=== PATIENT | female | born 1975 | race Caucasian/White ===

== ENCOUNTER 2022-09-19 18:30 | Observation (INO) | payer OTHER ==
--- OUTSIDE RECORDS SUMMARY | 2022-09-19 18:35 | XMS REPORT | Continuity of Care Document ---
:1975 Author Organization [facility] t Address [address] [place] [address] Care Team Providers Name Role Phone Jacquelyn Su MD Primary Care Physician KEILA SILVA Attending Clinician Unavailable Keila Silva DO Attending Clinician JOHN KIRBY Attending Clinician Unavailable Wai COMPUTER DESIGNERJohn Madera Attending Clinician JACQUELYN SU Attending Clinician Unavailable Doctor Unassigned, [place] Attending Clinician Unavailable Jacquelyn Su MD Attending Clinician Porfirio Barr DO Attending Clinician Magalie Carreno Attending Clinician MAGALIE VELÁSQUEZ Attending Clinician Unavailable Payers Payer Name Policy Type Policy Number Effective Date Expiration Date Demetris kumar [employer] [id number] 2018 OUT OF NETWORK 00:00:00 Problems Condition Condition Condition Status Onset Resolution Last Treating Co mments Source Name Details Category Date Date Treatment Clinician Date Attention Attention Disease Active Uni vers deficit deficit - ity of disorder disorder 00:00: [place] (ADD) (ADD) 00 Medical without without Branch hyperactiv hyperactiv ity ity Insomnia, Insomnia, Disease Active Uni vers unspecifie unspecifie -26 it y of d type d type 00:00: [place] 00 Medical Branch No known No known Disease Unive rs active active ity of problems problems [facility] Allergies, Adverse Reactions, Alerts Allergy Allergy Status Severity Reaction(s) Onset Inactive Treating Comm ents Source Name Type Date Date Clinician NO KNOWN Drug Active [facility] ALLERGIE Class ity of S [facility] Social History Social Habit Start Date Stop Date Quantity Comments Source History of tobacco Cigarette Smoker University of use [facility] Exposure to 2022-02-02 2022-02-12 Not sure [facility] SARS-CoV-2 (event) 00:00:00 07:12:00 [facility] Alcohol intake 2022-02-04 2022-02-04 Current University 00:00:00 00:00:00 non-drinker of [facility] alcohol Branch (finding) Tobacco use and 2019-08-01 2019-08-01 Smokeless Universit y of exposure 00:00:00 00:00:00 tobacco non-user [facility] C[facility] smoked 2019-08-01 2019-08-01 [facility] ity of current (pack per 00:00:00 00:00:00 [facility] ) - Reported Branch Sex Ass[birth year] At [birth year] [facility] 00:00:00 [facility] Smoking Status Start Date Stop Date Source Smokes tobacco daily 2019-08-01 00:00:00 [facility] ity [facility] Smoker, current status 2018-05-31 00:00:00 [facility] Medications Ordered Filled Start Stop Current Ordering Indication Dosage Frequency Signature Comments Components Source Medication Medication Date Date Medication? Clinician (SIG) Name Name methylPREDN Yes [id number] Take by [facility] ISolone 02-12 mouth ity of (MEDROL, 00:00: SEE-INSTRU Valeriano as TODD,) 4 mg 00 CTIONS. Medica l tablets follow [place] package directions NaCl 0.9% 2021- No 1000mL at 999 Uni vers (NS) bolus 02-05 09-14 mL/hr, ity of infusion 02:15: 14:14 1,000 mL, Valeriano as 1,000 mL 00 :00 IV Medical Infusion, [place] ONCE, 1 dose, On Thu02/04/22 at 2115, MEI zolpidem 10 2020-05 Yes [id number] 10mg Take 1 Univers mg tablet 0-20 tablet by ity o f 00:00: mouth at [place] 00 bedtime as Medical needed for Branch Insomnia. zolpidem 10 2020-05 Yes [id number] 10mg Take 1 Univers mg tablet 0-20 tablet by ity o f 00:00: mouth at [place] 00 bedtime as Medical needed for Branch Insomnia. zolpidem 10 2020-05 Yes [id number] 10mg Take 1 Univers mg tablet 0-20 tablet by ity o f 00:00: mouth at [place] 00 bedtime as Medical needed for Branch Insomnia. ESCITALOPRA Yes [id number] Take 1 Univers M OXALATE 8-23 tablet by ity o f 20 mg 00:00: mouth once [place] tablet 00 daily Medical Branch ESCITALOPRA Yes [id number] Take 1 Univers M OXALATE 8-23 tablet by ity o f 20 mg 00:00: mouth once [place] tablet 00 daily Medical Branch ESCITALOPRA Yes [id number] Take 1 Univers M OXALATE 8-23 tablet by ity o f 20 mg 00:00: mouth once [place] tablet daily Medical Branch ESCITALOPRA Yes [id number] Take 1 Univers M OXALATE 8-23 tablet by ity o f 20 mg 00:00: mouth once [place] tablet 00 daily Medical Branch ESCITALOPRA Yes [id number] Take 1 Univers M OXALATE 8-23 tablet by ity o f 20 mg 00:00: mouth once [place] tablet 00 daily Medical Branch ESCITALOPRA Yes [id number] Take 1 Univers M OXALATE 8-23 tablet by ity o f 20 mg 00:00: mouth once [place] tablet 00 daily Medical Branch ESCITALOPRA Yes [id number] Take 1 Univers M OXALATE 8-23 tablet by ity o f 20 mg 00:00: mouth once [place] tablet 00 daily Medical Branch ESCITALOPRA Yes [id number] Take 1 Univers M OXALATE 8-23 tablet by ity o f 20 mg 00:00: mouth once [place] tablet 00 daily Medical Branch escitalopra Yes [id number] 20mg Take 1 Univers m oxalate 4-19 tablet by ity o f (LEXAPRO) 00:00: mouth [place] 20 mg 00 daily. Medical tablet Branch zolpidem 10 Yes [id number] 10mg Take 1 Univers mg tablet 4-19 tablet by ity o f 00:00: mouth at [place] 00 bedtime as Medical needed for Branch Insomnia. escitalopra Yes [id number] 20mg Take 1 Univers m oxalate 4-19 tablet by ity o f (LEXAPRO) 00:00: mouth [place] 20 mg 00 daily. Medical tablet Branch zolpidem 10 Yes [id number] 10mg Take 1 Univers mg tablet 4-19 tablet by ity o f 00:00: mouth at [place] 00 bedtime as Medical needed for Branch Insomnia. escitalopra Yes [id number] 20mg Take 1 Univers m oxalate 4-19 tablet by ity o f (LEXAPRO) 00:00: mouth [place] 20 mg 00 daily. Medical tablet Branch zolpidem 10 Yes [id number] 10mg Take 1 Univers mg tablet 4-19 tablet by ity o f 00:00: mouth at [place] 00 bedtime as Medical needed for Branch Insomnia. escitalopra Yes [id number] 20mg Take 1 Univers m oxalate 4-19 tablet by ity o f (LEXAPRO) 00:00: mouth [place] 20 mg 00 daily. Medical tablet Branch zolpidem 10 Yes [id number] 10mg Take 1 Univers mg tablet 4-19 tablet by ity o f 00:00: mouth at [place] 00 bedtime as Medical needed for Branch Insomnia. escitalopra Yes [id number] 20mg Take 1 Univers m oxalate 4-19 tablet by ity o f (LEXAPRO) 00:00: mouth [place] 20 mg 00 daily. Medical tablet Branch zolpidem 10 Yes [id number] 10mg Take 1 Univers mg tablet 4-19 tablet by ity o f 00:00: mouth at [place] 00 bedtime as Medical needed for Branch Insomnia. escitalopra Yes [id number] 20mg Take 1 Univers m oxalate 4-19 tablet by ity o f (LEXAPRO) 00:00: mouth [place] 20 mg 00 daily. Medical tablet Branch zolpidem 10 Yes [id number] 10mg Take 1 Univers mg tablet 4-19 tablet by ity o f 00:00: mouth at [place] 00 bedtime as Medical needed for Branch Insomnia. zolpidem 10 Yes [id number] 10mg Take 1 Univers mg tablet 4-19 tablet by ity o f 00:00: mouth at [place] 00 bedtime as Medical needed for Branch Insomnia. zolpidem 10 Yes [id number] 10mg Take 1 Univers mg tablet 4-19 tablet by ity o f 00:00: mouth at [place] 00 bedtime as Medical needed for Branch Insomnia. zolpidem 10 Yes [id number] 10mg Take 1 Univers mg tablet 4-19 tablet by ity o f 00:00: mouth at [place] 00 bedtime as Medical needed for Branch Insomnia. zolpidem 10 Yes [id number] 10mg Take 1 Univers mg tablet 4-19 tablet by ity o f 00:00: mouth at [place] 00 bedtime as Medical needed for Branch Insomnia. zolpidem Yes [id number] 10mg Take 1 Univers mg tablet 4-19 tablet by ity o f 00:00: mouth at [place] 00 bedtime as Medical needed for Branch Insomnia. zolpidem 10 2020- No [id number] 10mg Take 1 Univers mg tablet 4-19 10-20 tablet by ity of 00:00: 00:00 mouth at [place] 00 :00 bedtime as Medical needed for Branch Insomnia. escitalopra 2020- No [id number] 20mg Take 1 Univers m oxalate 4-19 -23 tablet by ity of (LEXAPRO) 00:00: 00:00 mouth [place] 20 mg 00 :00 daily. Medical tablet Branch zolpidem 10 2019-05 Yes [id number] 10mg Take 1 Univers mg tablet 0-26 tablet by ity o f 00:00: mouth at [place] 00 bedtime as Medical needed for Branch Insomnia. escitalopra 2019-05 Yes [id number] 20mg Take 1 Univers m oxalate 0-26 tablet by ity o f (LEXAPRO) 00:00: mouth [place] 20 mg 00 daily. Medical tablet Branch dextroamphe 2019-05 Yes [id number] 10mg Take 1 Univers tamine-amph 0-26 tablet by ity of etamine 10 00:00: mouth [place] mg tablet 00 every Medical morning. Branch zolpidem 10 2019-05 Yes [id number] 10mg Take 1 Univers mg tablet 0-26 tablet by ity o f 00:00: mouth at [place] 00 bedtime as Medical needed for Branch Insomnia. escitalopra 2019-05 Yes [id number] 20mg Take 1 Univers m oxalate 0-26 tablet by ity o f (LEXAPRO) 00:00: mouth [place] 20 mg 00 daily. Medical tablet Branch dextroamphe 2019-05 Yes [id number] 10mg Take 1 Univers tamine-amph 0-26 tablet by ity of etamine 10 00:00: mouth [place] mg tablet 00 every Medical morning. Branch zolpidem 10 2019-05 Yes [id number] 10mg Take 1 Univers mg tablet 0-26 tablet by ity o f 00:00: mouth at [place] 00 bedtime as Medical needed for Branch Insomnia. escitalopra 2019-05 Yes [id number] 20mg Take 1 Univers m oxalate 0-26 tablet by ity o f (LEXAPRO) 00:00: mouth [place] 20 mg 00 daily. Medical tablet Branch dextroamphe 2019-05 Yes [id number] 10mg Take 1 Univers tamine-amph 0-26 tablet by ity of etamine 10 00:00: mouth [place] mg tablet 00 every Medical morning. Branch zolpidem 10 2019-05 Yes [id number] 10mg Take 1 Univers mg tablet 0-26 tablet by ity o f 00:00: mouth at [place] 00 bedtime as Medical needed for Branch Insomnia. escitalopra 2019-05 Yes [id number] 20mg Take 1 Univers m oxalate 0-26 tablet by ity o f (LEXAPRO) 00:00: mouth [place] 20 mg 00 daily. Medical tablet Branch dextroamphe 2019-05 Yes [id number] 10mg Take 1 Univers tamine-amph 0-26 tablet by ity of etamine 10 00:00: mouth [place] mg tablet 00 every Medical morning. Branch zolpidem 10 2019-05 Yes [id number] 10mg Take 1 Univers mg tablet 0-26 tablet by ity o f 00:00: mouth at [place] 00 bedtime as Medical needed for Branch Insomnia. escitalopra 2019-05 Yes [id number] 20mg Take 1 Univers m oxalate 0-26 tablet by ity o f (LEXAPRO) 00:00: mouth [place] 20 mg 00 daily. Medical tablet Branch dextroamphe 2019-05 Yes [id number] 10mg Take 1 Univers tamine-amph 0-26 tablet by ity of etamine 10 00:00: mouth [place] mg tablet 00 every Medical morning. Branch dextroamphe 2020-1 Yes [id number] 10mg Take 1 Univers tamine-amph 0-26 tablet by ity of etamine 10 00:00: mouth [place] mg tablet 00 every Medical morning. Branch dextroamphe 2020-1 Yes [id number] 10mg Take 1 Univers tamine-amph 0-26 tablet by ity of etamine 10 00:00: mouth [place] mg tablet 00 every Medical morning. Branch dextroamphe 2020-1 Yes [id number] 10mg Take 1 Univers tamine-amph 0-26 tablet by ity of etamine 10 00:00: mouth [place] mg tablet 00 every Medical morning. Branch dextroamphe 2020-1 Yes [id number] 10mg Take 1 Univers tamine-amph 0-26 tablet by ity of etamine 10 00:00: mouth [place] mg tablet 00 every Medical morning. Branch dextroamphe 2020-1 Yes [id number] 10mg Take 1 Univers tamine-amph 0-26 tablet by ity of etamine 10 00:00: mouth [place] mg tablet 00 every Medical morning. Branch dextroamphe 2020-1 Yes [id number] 10mg Take 1 Univers tamine-amph 0-26 tablet by ity of etamine 10 00:00: mouth [place] mg tablet 00 every Medical morning. Branch dextroamphe 2020-1 Yes [id number] 10mg Take 1 Univers tamine-amph 0-26 tablet by ity of etamine 10 00:00: mouth [place] mg tablet 00 every Medical morning. Branch dextroamphe 2020-1 Yes [id number] 10mg Take 1 Univers tamine-amph 0-26 tablet by ity of etamine 10 00:00: mouth [place] mg tablet 00 every Medical morning. Branch dextroamphe 2020-1 Yes [id number] 10mg Take 1 Univers tamine-amph 0-26 tablet by ity of etamine 10 00:00: mouth [place] mg tablet 00 every Medical morning. Branch dextroamphe 2020-1 Yes [id number] 10mg Take 1 Univers tamine-amph 0-26 tablet by ity of etamine 10 00:00: mouth [place] mg tablet 00 every Medical morning. Branch dextroamphe 2020-1 Yes [id number] 10mg Take 1 Univers tamine-amph 0-26 tablet by ity of etamine 10 00:00: mouth [place] mg tablet 00 every Medical morning. Branch dextroamphe 2019- Yes [id number] 10mg Take 1 Univers tamine-amph 0-26 tablet by ity of etamine 10 00:00: mouth [place] mg tablet 00 every Medical morning. Branch dextroamphe 2019- Yes [id number] 10mg Take 1 Univers tamine-amph 0-26 tablet by ity of etamine 10 00:00: mouth [place] mg tablet 00 every Medical morning. Branch dextroamphe 2019- Yes [id number] 10mg Take 1 Univers tamine-amph 0-26 tablet by ity of etamine 10 00:00: mouth [place] mg tablet 00 every Medical morning. Branch zolpidem 10 2019-05- No [id number] 10mg Take 1 Univers mg tablet 0-26 04-19 tablet by ity of 00:00: 00:00 mouth at [place] 00 :00 bedtime as Medical needed for Branch Insomnia. escitalopra 2019-05- No [id number] 20mg Take 1 Univers m oxalate 0-26 04-19 tablet by ity of (LEXAPRO) 00:00: 00:00 mouth [place] 20 mg 00 :00 daily. Medical tablet Branch zolpidem 10 2019- Yes [id number] 10mg Take 1 Univers mg tablet 5-26 tablet by ity o f 00:00: mouth at [place] 00 bedtime as Medical needed for Branch Insomnia. dextroamphe 2020- Yes [id number] 10mg Take 1 Univers tamine-amph 5-26 tablet by ity of etamine 10 00:00: mouth [place] mg tablet 00 every Medical morning. Branch zolpidem 10 2019- Yes [id number] 10mg Take 1 Univers mg tablet 5-26 tablet by ity o f 00:00: mouth at [place] 00 bedtime as Medical needed for Branch Insomnia. dextroamphe 2020- Yes [id number] 10mg Take 1 Univers tamine-amph 5-26 tablet by ity of etamine 10 00:00: mouth [place] mg tablet 00 every Medical morning. Branch zolpidem 10 2019- 2020- No [id number] 10mg Take 1 Univers mg tablet 5-26 10-26 tablet by ity of 00:00: 00:00 mouth at [place] 00 :00 bedtime as Medical needed for Branch Insomnia. dextroamphe 2019-0 2020- No [id number] 10mg Take 1 Univers tamine-amph 5-26 10-26 tablet by it y of etamine 10 00:00: 00:00 mouth [place] mg tablet 00 :00 every Medical morning. Branch zolpidem 10 2020- No [id number] 10mg Take 1 Univers mg tablet 5-26 10-26 tablet by ity of 00:00: 00:00 mouth at [place] 00 :00 bedtime as Medical needed for Branch Insomnia. dextroamphe 2019- 2020- No [id number] 10mg Take 1 Univers tamine-amph 5-26 10-26 tablet by it y of etamine 10 00:00: 00:00 mouth [place] mg tablet 00 :00 every Medical morning. Branch eszopiclone 2019-0 Yes [id number] 3mg Take 1 Univers 3 mg tablet 4-21 tablet by ity of 00:00: mouth at [place] [address] bedtime. Medical Branch eszopiclone 2019-0 Yes [id number] 3mg Take 1 Univers 3 mg tablet 4-21 tablet by ity of 00:00: mouth at [place] [address] bedtime. Medical Branch eszopiclone 2019-0 2020- No [id number] 3mg Take 1 Univers 3 mg tablet 4-21 05-26 tablet by it y of 00:00: 00:00 mouth at [place] 00 :00 bedtime. Medical Branch ESZOPICLONE 2019-0 Yes [id number] 3mg TAKE 1 Univers 3 mg tablet 3-18 TABLET BY ity of 00:00: MOUTH AT [place] 00 BEDTIME Medical Branch ESZOPICLONE 2020-0 Yes [id number] 3mg TAKE 1 Univers 3 mg tablet 3-18 TABLET BY ity of 00:00: MOUTH AT [place] 00 BEDTIME Medical Branch ESZOPICLONE 2019-0 2020- No [id number] 3mg TAKE 1 Univers 3 mg tablet 3-18 04-21 TABLET BY it y of 00:00: 00:00 MOUTH AT [place] 00 :00 BEDTIME Medical Branch ibuprofen 2020-0 Yes 800mg Take 1 Unive rs 800 mg 2-26 tablet by ity of tablet 00:00: mouth [place] 00 every 8 Medical (eight) Branch hours as needed for Pain (scale 4-6). ibuprofen 2019-0 Yes 800mg Take 1 Unive rs 800 mg 2-26 tablet by ity of tablet 00:00: mouth [place] 00 every 8 Medical (eight) Branch hours as needed for Pain (scale 4-6). ibuprofen 2020-0 Yes 800mg Take 1 Unive rs 800 mg 2-26 tablet by ity of tablet 00:00: mouth [place] 00 every 8 Medical (eight) Branch hours as needed for Pain (scale 4-6). ibuprofen 2020-0 Yes 800mg Take 1 Unive rs 800 mg 2-26 tablet by ity of tablet 00:00: mouth [place] 00 every 8 Medical (eight) Branch hours as needed for Pain (scale 4-6). ibuprofen 2020-0 Yes 800mg Take 1 Unive rs 800 mg 2-26 tablet by ity of tablet 00:00: mouth [place] 00 every 8 Medical (eight) Branch hours as needed for Pain (scale 4-6). ibuprofen 2020-0 Yes 800mg Take 1 Unive rs 800 mg 2-26 tablet by ity of tablet 00:00: mouth [place] 00 every 8 Medical (eight) Branch hours as needed for Pain (scale 4-6). ibuprofen 2020-0 Yes 800mg Take 1 Unive rs 800 mg 2-26 tablet by ity of tablet 00:00: mouth [place] 00 every 8 Medical (eight) Branch hours as needed for Pain (scale 4-6). ibuprofen 2020-0 Yes 800mg Take 1 Unive rs 800 mg 2-26 tablet by ity of tablet 00:00: mouth [place] 00 every 8 Medical (eight) Branch hours as needed for Pain (scale 4-6). ibuprofen 2020-0 Yes 800mg Take 1 Unive rs 800 mg 2-26 tablet by ity of tablet 00:00: mouth [place] 00 every 8 Medical (eight) Branch hours as needed for Pain (scale 4-6). ibuprofen 2020-0 Yes 800mg Take 1 Unive rs 800 mg 2-26 tablet by ity of tablet 00:00: mouth [place] 00 every 8 Medical (eight) Branch hours as needed for Pain (scale 4-6). ibuprofen 2020-0 Yes 800mg Take 1 Unive rs 800 mg 2-26 tablet by ity of tablet 00:00: mouth [place] 00 every 8 Medical (eight) Branch hours as needed for Pain (scale 4-6). ibuprofen 2020-0 Yes 800mg Take 1 Unive rs 800 mg 2-26 tablet by ity of tablet 00:00: mouth [place] 00 every 8 Medical (eight) Branch hours as needed for Pain (scale 4-6). ibuprofen 2020-0 Yes 800mg Take 1 Unive rs 800 mg 2-26 tablet by ity of tablet 00:00: mouth [place] 00 every 8 Medical (eight) Branch hours as needed for Pain (scale 4-6). ibuprofen 2020-0 Yes 800mg Take 1 Unive rs 800 mg 2-26 tablet by ity of tablet 00:00: mouth [place] 00 every 8 Medical (eight) Branch hours as needed for Pain (scale 4-6). ibuprofen 2020-0 Yes 800mg Take 1 Unive rs 800 mg 2-26 tablet by ity of tablet 00:00: mouth [place] 00 every 8 Medical (eight) Branch hours as needed for Pain (scale 4-6). ibuprofen 2020-0 Yes 800mg Take 1 Unive rs 800 mg 2-26 tablet by ity of tablet 00:00: mouth [place] 00 every 8 Medical (eight) Branch hours as needed for Pain (scale 4-6). ibuprofen 2020-0 Yes 800mg Take 1 Unive rs 800 mg 2-26 tablet by ity of tablet 00:00: mouth [place] 00 every 8 Medical (eight) Branch hours as needed for Pain (scale 4-6). ibuprofen 2020-0 Yes 800mg Take 1 Unive rs 800 mg 2-26 tablet by ity of tablet 00:00: mouth [place] 00 every 8 Medical (eight) Branch hours as needed for Pain (scale 4-6). ibuprofen 2020-0 Yes 800mg Take 1 Unive rs 800 mg 2-26 tablet by ity of tablet 00:00: mouth [place] 00 every 8 Medical (eight) Branch hours as needed for Pain (scale 4-6). ibuprofen 2020-0 Yes 800mg Take 1 Unive rs 800 mg 2-26 tablet by ity of tablet 00:00: mouth [place] 00 every 8 Medical (eight) Branch hours as needed for Pain (scale 4-6). ibuprofen 2020-0 Yes 800mg Take 1 Unive rs 800 mg 2-26 tablet by ity of tablet 00:00: mouth [place] 00 every 8 Medical (eight) Branch hours as needed for Pain (scale 4-6). ibuprofen 2020-0 Yes 800mg Take 1 Unive rs 800 mg 2-26 tablet by ity of tablet 00:00: mouth [place] 00 every 8 Medical (eight) Branch hours as needed for Pain (scale 4-6). ibuprofen 2020-0 Yes 800mg Take 1 Unive rs 800 mg 2-26 tablet by ity of tablet 00:00: mouth [place] 00 every 8 Medical (eight) Branch hours as needed for Pain (scale 4-6). ibuprofen 2020-0 Yes 800mg Take 1 Unive rs 800 mg 2-26 tablet by ity of tablet 00:00: mouth [place] 00 every 8 Medical (eight) Branch hours as needed for Pain (scale 4-6). ibuprofen 2020-0 Yes 800mg Take 1 Unive rs 800 mg 2-26 tablet by ity of tablet 00:00: mouth [place] 00 every 8 Medical (eight) Branch hours as needed for Pain (scale 4-6). ibuprofen 2020-0 Yes 800mg Take 1 Unive rs 800 mg 2-26 tablet by ity of tablet 00:00: mouth [place] 00 every 8 Medical (eight) Branch hours as needed for Pain (scale 4-6). ibuprofen 2020-0 Yes 800mg Take 1 Unive rs 800 mg 2-26 tablet by ity of tablet 00:00: mouth [place] 00 every 8 Medical (eight) Branch hours as needed for Pain (scale 4-6). ibuprofen 2020-0 Yes 800mg Take 1 Unive rs 800 mg 2-26 tablet by ity of tablet 00:00: mouth [place] 00 every 8 Medical (eight) Branch hours as needed for Pain (scale 4-6). ibuprofen 2020-0 Yes 800mg Take 1 Unive rs 800 mg 2-26 tablet by ity of tablet 00:00: mouth [place] 00 every 8 Medical (eight) Branch hours as needed for Pain (scale 4-6). ARIPiprazol 2020-0 Yes [id number] 10mg Take 1 Univers e 10 mg 2-13 tablet by ity of tablet 00:00: mouth [place] 00 daily. Medical Branch eszopiclone 2020-0 Yes [id number] 3mg Take 1 Univers 3 mg tablet 2-13 tablet by ity of 00:00: mouth at [place] 00 bedtime. Medical Branch escitalopra 2020-0 Yes [id number] 20mg Take 1 Univers m oxalate 2-13 tablet by ity o f (LEXAPRO) 00:00: mouth [place] 20 mg 00 daily. Medical tablet Branch ARIPiprazol 2020-0 Yes [id number] 10mg Take 1 Univers e 10 mg 2-13 tablet by ity of tablet 00:00: mouth [place] 00 daily. Medical Branch eszopiclone 2019-0 Yes [id number] 3mg Take 1 Univers 3 mg tablet 2-13 tablet by ity of 00:00: mouth at [place] 00 bedtime. Medical Branch escitalopra 2019-0 Yes [id number] 20mg Take 1 Univers m oxalate 2-13 tablet by ity o f (LEXAPRO) 00:00: mouth [place] 20 mg 00 daily. Medical tablet Branch ARIPiprazol 2019-0 Yes [id number] 10mg Take 1 Univers e 10 mg 2-13 tablet by ity of tablet 00:00: mouth [place] 00 daily. Medical Branch escitalopra 2019-0 Yes [id number] 20mg Take 1 Univers m oxalate 2-13 tablet by ity o f (LEXAPRO) 00:00: mouth [place] 20 mg 00 daily. Medical tablet Branch ARIPiprazol 2019- Yes [id number] 10mg Take 1 Univers e 10 mg 2-13 tablet by ity of tablet 00:00: mouth [place] 00 daily. Medical Branch escitalopra 2019-0 Yes [id number] 20mg Take 1 Univers m oxalate 2-13 tablet by ity o f (LEXAPRO) 00:00: mouth [place] 20 mg 00 daily. Medical tablet Branch ARIPiprazol 2019-0 Yes [id number] 10mg Take 1 Univers e 10 mg 2-13 tablet by ity of tablet 00:00: mouth [place] 00 daily. Medical Branch escitalopra 2019-0 Yes [id number] 20mg Take 1 Univers m oxalate 2-13 tablet by ity o f (LEXAPRO) 00:00: mouth [place] 20 mg 00 daily. Medical tablet Branch ARIPiprazol 2019-0 Yes [id number] 10mg Take 1 Univers e 10 mg 2-13 tablet by ity of tablet 00:00: mouth [place] 00 daily. Medical Branch escitalopra 2019-0 Yes [id number] 20mg Take 1 Univers m oxalate 2-13 tablet by ity o f (LEXAPRO) 00:00: mouth [place] 20 mg 00 daily. Medical tablet Branch ARIPiprazol 2019-0 Yes [id number] 10mg Take 1 Univers e 10 mg 2-13 tablet by ity of tablet 00:00: mouth [place] 00 daily. Medical Branch escitalopra 2019-0 Yes [id number] 20mg Take 1 Univers m oxalate 2-13 tablet by ity o f (LEXAPRO) 00:00: mouth [place] 20 mg 00 daily. Medical tablet Branch ARIPiprazol 2019-0 Yes [id number] 10mg Take 1 Univers e 10 mg 2-13 tablet by ity of tablet 00:00: mouth [place] 00 daily. Medical Branch escitalopra 2019-0 Yes [id number] 20mg Take 1 Univers m oxalate 2-13 tablet by ity o f (LEXAPRO) 00:00: mouth [place] 20 mg 00 daily. Medical tablet Branch ARIPiprazol 2019-0 Yes [id number] 10mg Take 1 Univers e 10 mg 2-13 tablet by ity of tablet 00:00: mouth [place] 00 daily. Medical Branch ARIPiprazol 2019-0 Yes [id number] 10mg Take 1 Univers e 10 mg 2-13 tablet by ity of tablet 00:00: mouth [place] 00 daily. Medical Branch ARIPiprazol 2019-0 Yes [id number] 10mg Take 1 Univers e 10 mg 2-13 tablet by ity of tablet 00:00: mouth [place] 00 daily. Medical Branch ARIPiprazol 2019-0 Yes [id number] 10mg Take 1 Univers e 10 mg 2-13 tablet by ity of tablet 00:00: mouth [place] 00 daily. Medical Branch ARIPiprazol 2019-0 Yes [id number] 10mg Take 1 Univers e 10 mg 2-13 tablet by ity of tablet 00:00: mouth [place] 00 daily. Medical Branch ARIPiprazol 2019-0 Yes [id number] 10mg Take 1 Univers e 10 mg 2-13 tablet by ity of tablet 00:00: mouth [place] 00 daily. Medical Branch ARIPiprazol 2019-0 Yes [id number] 10mg Take 1 Univers e 10 mg 2-13 tablet by ity of tablet 00:00: mouth [place] 00 daily. Medical Branch ARIPiprazol 2020-0 Yes [id number] 10mg Take 1 Univers e 10 mg 2-13 tablet by ity of tablet 00:00: mouth [place] 00 daily. Medical Branch ARIPiprazol 2019-0 Yes [id number] 10mg Take 1 Univers e 10 mg 2-13 tablet by ity of tablet 00:00: mouth [place] 00 daily. Medical Branch ARIPiprazol 2019-0 Yes [id number] 10mg Take 1 Univers e 10 mg 2-13 tablet by ity of tablet 00:00: mouth [place] 00 daily. Medical Branch ARIPiprazol 2020-0 Yes [id number] 10mg Take 1 Univers e 10 mg 2-13 tablet by ity of tablet 00:00: mouth [place] 00 daily. Medical Branch ARIPiprazol 2019-0 Yes [id number] 10mg Take 1 Univers e 10 mg 2-13 tablet by ity of tablet 00:00: mouth [place] 00 daily. Medical Branch ARIPiprazol 2019-0 Yes [id number] 10mg Take 1 Univers e 10 mg 2-13 tablet by ity of tablet 00:00: mouth [place] 00 daily. Medical Branch eszopiclone 2019-0 Yes [id number] 3mg Take 1 Univers 3 mg tablet 2-13 tablet by ity of 00:00: mouth at [place] 00 bedtime. Medical Branch ARIPiprazol 2019-0 Yes [id number] 10mg Take 1 Univers e 10 mg 2-13 tablet by ity of tablet 00:00: mouth [place] 00 daily. Medical Branch escitalopra 2019-0 Yes [id number] 20mg Take 1 Univers m oxalate 2-13 tablet by ity o f (LEXAPRO) 00:00: mouth [place] 20 mg 00 daily. Medical [facility] Branch ARIPiprazol 2019-0 Yes [id number] 10mg Take 1 Univers e 10 mg 2-13 tablet by ity of tablet 00:00: mouth [place] 00 daily. Medical Branch ARIPiprazol 2019-0 Yes [id number] 10mg Take 1 Univers e 10 mg 2-13 tablet by ity of tablet 00:00: mouth [place] 00 daily. Medical Branch meloxicam 2019-0 Yes [id number] 7.5mg Take 1 U nivers 7.5 mg 2-13 tablet by ity of tablet 00:00: mouth [place] 00 daily. Medical Branch ARIPiprazol 2019-0 Yes [id number] 10mg Take 1 Univers e 10 mg 2-13 tablet by ity of tablet 00:00: mouth [place] 00 daily. Medical Branch ARIPiprazol 2019-0 Yes [id number] 10mg Take 1 Univers e 10 mg 2-13 tablet by ity of tablet 00:00: mouth [place] 00 daily. Medical Branch ARIPiprazol 2019-0 Yes [id number] 10mg Take 1 Univers e 10 mg 2-13 tablet by ity of tablet 00:00: mouth [place] 00 daily. Medical Branch ARIPiprazol 2020-0 Yes [id number] 10mg Take 1 Univers e 10 mg 2-13 tablet by ity of tablet 00:00: mouth [place] 00 daily. Medical Branch ARIPiprazol 2020-0 Yes [id number] 10mg Take 1 Univers e 10 mg 2-13 tablet by ity of tablet 00:00: mouth [place] 00 daily. Medical Branch eszopiclone 2020-0 Yes [id number] 3mg Take 1 Univers 3 mg tablet 2-13 tablet by ity of 00:00: mouth at [place] 00 bedtime. Medical Branch escitalopra 2020-0 Yes [id number] 20mg Take 1 Univers m oxalate 2-13 tablet by ity o f (LEXAPRO) 00:00: mouth [place] 20 mg 00 daily. Medical tablet Branch ARIPiprazol 2019-0 Yes [id number] 10mg Take 1 Univers e 10 mg 2-13 tablet by ity of tablet 00:00: mouth [place] 00 daily. Medical Branch meloxicam 2020-0 Yes [id number] 7.5mg Take 1 U nivers 7.5 mg 2-13 tablet by ity of tablet 00:00: mouth [place] 00 daily. Medical Branch eszopiclone 2019-0 Yes [id number] 3mg Take 1 Univers 3 mg tablet 2-13 tablet by ity of 00:00: mouth at [place] 00 bedtime. Medical Branch escitalopra 2020-0 Yes [id number] 20mg Take 1 Univers m oxalate 2-13 tablet by ity o f (LEXAPRO) 00:00: mouth [place] 20 mg 00 daily. Medical tablet Branch ARIPiprazol 2020-0 Yes [id number] 10mg Take 1 Univers e 10 mg 2-13 tablet by ity of tablet 00:00: mouth [place] 00 daily. Medical Branch meloxicam 2020-0 Yes [id number] 7.5mg Take 1 U nivers 7.5 mg 2-13 tablet by ity of tablet 00:00: mouth [place] 00 daily. Medical Branch eszopiclone 2020-0 Yes [id number] 3mg Take 1 Univers 3 mg tablet 2-13 tablet by ity of 00:00: mouth at [place] 00 bedtime. Medical Branch escitalopra 2020-0 Yes [id number] 20mg Take 1 Univers m oxalate 2-13 tablet by ity o f (LEXAPRO) 00:00: mouth [place] 20 mg 00 daily. Medical tablet Branch ARIPiprazol 2020-0 Yes [id number] 10mg Take 1 Univers e 10 mg 2-13 tablet by ity of tablet 00:00: mouth [place] 00 daily. Medical Branch meloxicam 2019-0 Yes [id number] 7.5mg Take 1 U nivers 7.5 mg 2-13 tablet by ity of tablet 00:00: mouth [place] 00 daily. Medical Branch eszopiclone 2019-0 Yes [id number] 3mg Take 1 Univers 3 mg tablet 2-13 tablet by ity of 00:00: mouth at [place] 00 bedtime. Medical Branch escitalopra 2020-0 Yes [id number] 20mg Take 1 Univers m oxalate 2-13 tablet by ity o f (LEXAPRO) 00:00: mouth [place] 20 mg 00 daily. Medical tablet Branch ARIPiprazol 2019-0 Yes [id number] 10mg Take 1 Univers e 10 mg 2-13 tablet by ity of tablet 00:00: mouth [place] 00 daily. Medical Branch meloxicam 2019-0 Yes [id number] 7.5mg Take 1 U nivers 7.5 mg 2-13 tablet by ity of tablet 00:00: mouth [place] 00 daily. Medical Branch eszopiclone 2019-0 Yes [id number] 3mg Take 1 Univers 3 mg tablet 2-13 tablet by ity of 00:00: mouth at [place] 00 bedtime. Medical Branch escitalopra 2019-0 Yes [id number] 20mg Take 1 Univers m oxalate 2-13 tablet by ity o f (LEXAPRO) 00:00: mouth [place] 20 mg 00 daily. Medical tablet Branch ARIPiprazol 2019-0 Yes [id number] 10mg Take 1 Univers e 10 mg 2-13 tablet by ity of tablet 00:00: mouth [place] 00 daily. Medical Branch meloxicam 2020-0 Yes [id number] 7.5mg Take 1 U nivers 7.5 mg 2-13 tablet by ity of tablet 00:00: mouth [place] 00 daily. Medical Branch eszopiclone 2019-0 Yes [id number] 3mg Take 1 Univers 3 mg tablet 2-13 tablet by ity of 00:00: mouth at [place] 00 bedtime. Medical Branch escitalopra 2020-0 Yes [id number] 20mg Take 1 Univers m oxalate 2-13 tablet by ity o f (LEXAPRO) 00:00: mouth [place] 20 mg 00 daily. Medical tablet Branch ARIPiprazol 2019-0 Yes [id number] 10mg Take 1 Univers e 10 mg 2-13 tablet by ity of tablet 00:00: mouth [place] 00 daily. Medical Branch meloxicam 2019-0 Yes [id number] 7.5mg Take 1 U nivers 7.5 mg 2-13 tablet by ity of tablet 00:00: mouth [place] 00 daily. Medical Branch eszopiclone 2019-0 Yes [id number] 3mg Take 1 Univers 3 mg tablet 2-13 tablet by ity of 00:00: mouth at [place] 00 bedtime. Medical Branch escitalopra 2019-0 Yes [id number] 20mg Take 1 Univers m oxalate 2-13 tablet by ity o f (LEXAPRO) 00:00: mouth [place] 20 mg 00 daily. Medical tablet Branch ARIPiprazol 2019-0 Yes [id number] 10mg Take 1 Univers e 10 mg 2-13 tablet by ity of tablet 00:00: mouth [place] 00 daily. Medical Branch eszopiclone 2019-0 Yes [id number] 3mg Take 1 Univers 3 mg tablet 2-13 tablet by ity of 00:00: mouth at [place] 00 bedtime. Medical Branch escitalopra 2019-0 Yes [id number] 20mg Take 1 Univers m oxalate 2-13 tablet by ity o f (LEXAPRO) 00:00: mouth [place] 20 mg 00 daily. Medical tablet Branch escitalopra 2019-0 2020- No [id number] 20mg Take 1 Univers m oxalate 2-13 10-26 tablet by ity of (LEXAPRO) 00:00: 00:00 mouth [place] 20 mg 00 :00 daily. Medical tablet Branch escitalopra 2019-0 2020- No [id number] 20mg Take 1 Univers m oxalate 2-13 10-26 tablet by ity of (LEXAPRO) 00:00: 00:00 mouth [place] 20 mg 00 :00 daily. Medical tablet Branch eszopiclone 2019-0 2020- No [id number] 3mg Take 1 Univers 3 mg tablet 2-13 03-18 tablet by it y of 00:00: 00:00 mouth at [place] 00 :00 bedtime. Medical Branch meloxicam 2019-0 2020- No [id number] 7.5mg Take 1 Univers 7.5 mg 2-07 07- tablet by ity of tablet 00:00: 00:00 mouth [place] 00 :00 daily. Medical Branch ESZOPICLONE Yes [id number] 3mg TAKE 1 Univers 3 mg tablet 1-16 TABLET BY ity of 00:00: MOUTH AT [place] 00 BEDTIME Medical Branch ESZOPICLONE 2019-0 2020- No [id number] 3mg TAKE 1 Univers 3 mg tablet 1-16 -13 TABLET BY it y of 00:00: 00:00 MOUTH AT [place] 00 :00 BEDTIME Medical Branch ESZOPICLONE 2019- 2020- No [id number] 3mg TAKE 1 Univers 3 mg tablet 1-16 -13 TABLET BY it y of 00:00: 00:00 MOUTH AT [place] 00 :00 BEDTIME Medical Branch ESZOPICLONE 2020- No [id number] 3mg TAKE 1 Univers 3 mg tablet 1-16 -13 TABLET BY it y of 00:00: 00:00 MOUTH AT [place] 00 :00 BEDTIME Medical Branch escitalopra Yes [id number] 20mg Take 1 Univers m oxalate 7-22 tablet by ity o f (LEXAPRO) 00:00: mouth [place] 20 mg 00 daily. Medical tablet Branch escitalopra Yes [id number] 20mg Take 1 Univers m oxalate 7-22 tablet by ity o f (LEXAPRO) 00:00: mouth [place] 20 mg 00 daily. Medical tablet Branch escitalopra 2020- No [id number] 20mg Take 1 Univers m oxalate 7-22 02-13 tablet by ity of (LEXAPRO) 00:00: 00:00 mouth [place] 20 mg 00 :00 daily. Medical tablet Branch escitalopra 2020- No [id number] 20mg Take 1 Univers m oxalate 7-22 02-13 tablet by ity of (LEXAPRO) 00:00: 00:00 mouth [place] 20 mg 00 :00 daily. Medical tablet Branch escitalopra 2020- No [id number] 20mg Take 1 Univers m oxalate 7-22 02-13 tablet by ity of (LEXAPRO) 00:00: 00:00 mouth [place] 20 mg 00 :00 daily. Medical tablet Branch eszopiclone 2020- No [id number] 3mg Take 1 Univers 3 mg tablet 12-13 tablet by it y of 00:00: 00:00 mouth at [place] 00 :00 bedtime. Medical Branch naproxen Yes 550mg Take 1 Univer s sodium 1-07 tablet by ity of (ANAPROX 00:00: mouth 2 [place] DS) 550 mg 00 (two) Medical tablet times Branch daily with meals. naproxen Yes 550mg Take 1 Univer s sodium 1-07 tablet by ity of (ANAPROX 00:00: mouth 2 [place] DS) 550 mg 00 (two) Medical tablet times Branch daily with meals. naproxen 2020- No 550mg Take 1 Unive rs sodium 1-07 -13 tablet by ity of (ANAPROX 00:00: 00:00 mouth 2 [place] DS) 550 mg 00 :00 (two) Medical tablet times Branch daily with meals. naproxen 2020- No 550mg Take 1 Unive rs sodium -11 23-13 tablet by ity of (ANAPROX 00:00: 00:00 mouth 2 [place] DS) 550 mg 00 :00 (two) Medical tablet times Branch daily with meals. naproxen 2020- No 550mg Take 1 Unive rs sodium -07 -13 tablet by ity of (ANAPROX 00:00: 00:00 mouth 2 [place] DS) 550 mg 00 :00 (two) Medical tablet times Branch daily with meals. varenicline 2016-05 Yes 1mg Take 1 Univ ers 1 mg tablet 1-09 tablet by ity of 00:00: mouth 2 (two) Medical times Branch daily. varenicline 2016-05 Yes 1mg Take 1 Univ ers 1 mg tablet 1-09 tablet by ity of 00:00: mouth 2 (two) Medical times Branch daily. varenicline 2016-05 Yes 1mg Take 1 Univ ers 1 mg tablet 1-09 tablet by ity of 00:00: mouth 2 (two) Medical times Branch daily. varenicline 2016-05 Yes 1mg Take 1 Univ ers 1 mg tablet 1-09 tablet by ity of 00:00: mouth 2 (two) Medical times Branch daily. varenicline 2016-05 Yes 1mg Take 1 Univ ers 1 mg tablet 1-09 tablet by ity of 00:00: mouth 2 [place] 00 (two) Medical times Branch daily. varenicline 2016-05 Yes 1mg Take 1 Univ ers 1 mg tablet 1-09 tablet by ity of 00:00: mouth 2 [place] 00 (two) Medical times Branch daily. varenicline 2016-05 Yes 1mg Take 1 Univ ers 1 mg tablet 1-09 tablet by ity of 00:00: mouth 2 [place] 00 (two) Medical times Branch daily. varenicline 2016-05 Yes 1mg Take 1 Univ ers 1 mg tablet 1-09 tablet by ity of 00:00: mouth 2 [place] 00 (two) Medical times Branch daily. varenicline 2016-05 Yes 1mg Take 1 Univ ers 1 mg tablet 1-09 tablet by ity of 00:00: mouth 2 [place] 00 (two) Medical times Branch daily. varenicline 2016-05 Yes 1mg Take 1 Univ ers 1 mg tablet 1-09 tablet by ity of 00:00: mouth 2 00 (two) Medical times Branch daily. varenicline 2016-05 Yes 1mg Take 1 Univ ers 1 mg tablet 1-09 tablet by ity of 00:00: mouth 2 00 (two) Medical times Branch daily. varenicline 2016-05 Yes 1mg Take 1 Univ ers 1 mg tablet 1-09 tablet by ity of 00:00: mouth 2 00 (two) Medical times Branch daily. varenicline 2016-05 Yes 1mg Take 1 Univ ers 1 mg tablet 1-09 tablet by ity of 00:00: mouth 2 00 (two) Medical times Branch daily. varenicline 2016-05 Yes 1mg Take 1 Univ ers 1 mg tablet 1-09 tablet by ity of 00:00: mouth 2 [place] 00 (two) Medical times Branch daily. varenicline 2016-05 Yes 1mg Take 1 Univ ers 1 mg tablet 1-09 tablet by ity of 00:00: mouth 2 [place] 00 (two) Medical times Branch daily. varenicline 2016-05 Yes 1mg Take 1 Univ ers 1 mg tablet 1-09 tablet by ity of 00:00: mouth 2 [place] 00 (two) Medical times Branch daily. varenicline 2016-05 Yes 1mg Take 1 Univ ers 1 mg tablet 1-09 tablet by ity of 00:00: mouth 2 [place] 00 (two) Medical times Branch daily. varenicline 2016-05 Yes 1mg Take 1 Univ ers 1 mg tablet 1-09 tablet by ity of 00:00: mouth 2 00 (two) Medical times Branch daily. varenicline 2016-05 Yes 1mg Take 1 Univ ers 1 mg tablet 1-09 tablet by ity of 00:00: mouth 2 [place] 00 (two) Medical times Branch daily. varenicline 2016-05 Yes 1mg Take 1 Univ ers 1 mg tablet 1-09 tablet by ity of 00:00: mouth 2 00 (two) Medical times Branch daily. varenicline 2016-05 Yes 1mg Take 1 Univ ers 1 mg tablet 1-09 tablet by ity of 00:00: mouth 2 (two) Medical times Branch daily. varenicline 2016-05 Yes 1mg Take 1 Univ ers 1 mg tablet 1-09 tablet by ity of 00:00: mouth 2 (two) Medical times Branch daily. varenicline 2016-05 Yes 1mg Take 1 Univ ers 1 mg tablet 1-09 tablet by ity of 00:00: mouth 2 (two) Medical times Branch daily. varenicline 2016-05 Yes 1mg Take 1 Univ ers 1 mg tablet 1-09 tablet by ity of 00:00: mouth 2 (two) Medical times Branch daily. varenicline 2016-05 Yes 1mg Take 1 Univ ers 1 mg tablet 1-09 tablet by ity of 00:00: mouth 2 (two) Medical times Branch daily. varenicline 2016-05 Yes 1mg Take 1 Univ ers 1 mg tablet 1-09 tablet by ity of 00:00: mouth 2 (two) Medical times Branch daily. varenicline 2016-05 Yes 1mg Take 1 Univ ers 1 mg tablet 1-09 tablet by ity of 00:00: mouth 2 00 (two) Medical times Branch daily. varenicline 2016-05 Yes 1mg Take 1 Univ ers 1 mg tablet 1-09 tablet by ity of 00:00: mouth 2 00 (two) Medical times Branch daily. varenicline 2016-05 Yes 1mg Take 1 Univ ers 1 mg tablet 1-09 tablet by ity of 00:00: mouth 2 00 (two) Medical times Branch daily. varenicline 2016-05 Yes 1mg Take 1 Univ ers 1 mg tablet 1-09 tablet by ity of 00:00: mouth 2 [place] 00 (two) Medical times Branch daily. varenicline 2016-05 Yes 1mg Take 1 Univ ers 1 mg tablet 1-09 tablet by ity of 00:00: mouth 2 [place] 00 (two) Medical times Branch daily. varenicline 2016-05 Yes 1mg Take 1 Univ ers 1 mg tablet 1-09 tablet by ity of 00:00: mouth 2 [place] 00 (two) Medical times Branch daily. varenicline 2016-05 Yes 1mg Take 1 Univ ers 1 mg tablet 1-09 tablet by ity of 00:00: mouth 2 [place] 00 (two) Medical times Branch daily. varenicline 2016-05 Yes 1mg Take 1 Univ ers 1 mg tablet 1-09 tablet by ity of 00:00: mouth 2 [place] 00 (two) Medical times Branch daily. varenicline 2016-05 Yes 1mg Take 1 Univ ers 1 mg tablet 1-09 tablet by ity of 00:00: mouth 2 [place] 00 (two) Medical times Branch daily. varenicline 2016-05 Yes 1mg Take 1 Univ ers 1 mg tablet 1-09 tablet by ity of 00:00: mouth 2 [place] 00 (two) Medical times Branch daily. varenicline 2016-05 Yes 1mg Take 1 Univ ers 1 mg tablet 1-09 tablet by ity of 00:00: mouth 2 [place] 00 (two) Medical times Branch daily. varenicline 2016-05 Yes 1mg Take 1 Univ ers 1 mg tablet 1-09 tablet by ity of 00:00: mouth 2 [place] 00 (two) Medical times Branch daily. Vital Signs Vital Name Observation Time Observation Value Comments Source Systolic blood 2022-02-12 12:11:00 164 mm[Hg] Univer sity of [facility] Diastolic blood 2022-02-12 12:11:00 103 mm[Hg] Unive rsity [facility] Heart rate 2022-02-12 12:11:00 83 /min [facility] Body temperature 2022-02-12 12:11:00 36.39 Yara [facility] 2022-02-12 12:11:00 18 /min [facility] Body weight 2022-02-12 12:11:00 136.079 kg Universi ty of [place] [facility] BMI 2022-02-12 12:11:00 51.49 kg/m2 Universi ty of [place] [facility] Oxygen saturation in 2022-02-12 12:11:00 97 /min University of Arterial blood by [facility] Pulse oximetry Branch Systolic blood 2022-02-05 01:26:00 147 mm[Hg] Univer sity of pressure [place] [facility] Diastolic blood 2022-02-05 01:26:00 89 mm[Hg] Unive rsity of pressure [place] [facility] Heart rate 2022-02-05 01:26:00 100 /min Universi ty of [place] [facility] Respiratory rate 2022-02-05 01:26:00 16 /min Univ ersity of [facility] Branch Oxygen saturation in 2022-02-05 01:26:00 96 /min University of Arterial blood by [facility] Pulse oximetry Branch Body height 2022-02-05 01:21:00 162.6 cm Universi ty of [place] [facility] [place] Body weight 2022-02-05 01:21:00 136.079 kg Universi ty of [place] [facility] BMI 2022-02-05 01:21:00 51.49 kg/m2 Universi ty of [place] [facility] Systolic blood 2020-03-19 13:46:00 130 mm[Hg] Univer sity of pressure [place] [facility] Diastolic blood 2020-03-19 13:46:00 70 mm[Hg] Unive rsity of pressure [place] [facility] Body weight 2020-03-19 13:46:00 121.11 kg Universi ty of [place] [facility] BMI 2020-03-19 13:46:00 45.83 kg/m2 Universi ty of [place] [facility] Systolic blood 2019-08-01 19:54:00 140 mm[Hg] Univer sity of pressure [place] [facility] Diastolic blood 2019-08-01 19:54:00 89 mm[Hg] Unive rsity of pressure [place] [facility] Heart rate 2019-08-01 19:53:00 93 /min Universi ty of [place] [facility] Body temperature 2019-08-01 19:53:00 36.5 Yara Univ ersity of [place] [facility] Body weight 2019-08-01 19:53:00 112.674 kg Universi ty of [place] [facility] BMI 2019-08-01 19:53:00 42.64 kg/m2 [facility] Oxygen saturation in 2019-08-01 19:53:00 98 /min [facility] Arterial blood by [facility] Pulse oximetry Branch Systolic blood 2019-07-07 19:59:00 120 mm[Hg] Univer sity of pressure [facility] Diastolic blood 2019-07-07 19:59:00 80 mm[Hg] Unive rsity of pressure [facility] Body weight 2019-07-07 19:59:00 111.585 kg Universi [facility] BMI 2019-07-07 19:59:00 42.23 kg/m2 [facility] Procedures Procedure Date / Time Performing Clinician Source Performed CONSENT/REFUSAL FOR 2022-02-12 12:08:21 Doctor Parmjit [facility] DIAGNOSIS AND TREATMENT [facility] CONSENT/REFUSAL FOR 2022-02-05 01:07:16 Doctor Parmjit [facility] DIAGNOSIS AND TREATMENT [facility] INSURANCE CORRESPONDENCE 2020-11-13 05:01:00 Doctor Parmjit, [facility] Name [facility] POCT URINALYSIS AUTO 2019-08-01 20:33:00 Magalie Velásquez [facility] EXTERNAL PROVIDER RECORDS 2019-07-21 06:01:00 Doctor Parnell [facility] Encounters Start End Encounter Admission Attending Care Care Encounter Source Date/Time Date/Time Type Type Clinicians Facility Department ID 2022-02-12 2022-02-12 Emergency Nessa SILVA [facility] ERT [id number] Univers 07:13:00 07:38:00 KEILA venegas [facility] 2022-02-12 2022-02-12 Emergency Singer [facility] [id number] Univers 07:13:00 07:38:00 Keila GOODE [id number] i ty [facility] [id number] [facility] [phone] [facility] 084 Branch 2022-02-04 2022-02-04 Emergency Nessa KIRBY [facility] ERT [id number] Univers 20:17:00 20:58:00 JOHN venegas [facility] 2022-02-04 2022-02-04 [facility] [id number] Univers 20:17:00 20:58:00 John GOODE [id number] i ty [id number] [phone] [address] 2021-03-18 2021-03-18 Outpatient R SHARLENE [facility] [id number] Univers 07:30:00 07:30:00 JACQUELYN venegas [facility] 2021-03-13 2021-03-13 Refill Doctor [facility] 1.2.840.114 [id number] Univers 00:00:00 00:00:00 Unassigned, Health [id number] ity of [place] [id number] Valeriano as Professio [id number] [address] One 2021-03-13 2021-03-13 Refill Sharlene [facility] 1.2.840.114 [id number] Univers 00:00:00 00:00:00 [facility] [id number] it y of [place] [id number] [place] as Professio [phone] [address] One 2021-03-13 2021-03-13 Patient Su [facility] 1.2.840.114 [id number] Univers 00:00:00 00:00:00 Secure Msg Jacquelyn Health [id number] ity of [place] [id number] [place] as Professio [phone] [address] 2021-02-26 2021-02-26 Outpatient R SHARLENE [facility] [id number] Univers 07:15:00 07:15:00 JACQUELYN venegas [facility] 2021-02-25 2021-02-25 Refill Sharlene [facility] 1.2.840.114 [id number] Univers 00:00:00 00:00:00 Jacquelyn Health [id number] it y of [place] [id number] Valeriano as Reinier?Blea [phone] [address] [facility] 2021-02-21 2021-02-21 [facility] 1.2.840.114 [id number] Univers 00:00:00 00:00:00 Jacquelyn [facility] 350.1.13.10 it y of [place] [id number] Valeriano as Reinier?Blea [id number] [address] 2021-01-12 2021-01-12 [facility] 1.2.840.114 [id number] Univers 00:00:00 00:00:00 Jac[facility] [id number] it y of [place] [id number] [place] as Professio [phone] [address] One 2020-11-13 2020-11-13 Orders Doctor SUMAYA 1.2.840.114 [id number] Univers 00:00:00 00:00:00 Only Unassigned, ALF 350.1.13.10 ity of [place] [facility] [id number] Valeriano as [phone] [address] 2020-11-12 2020-11-12 Telephone [facility] [id number] Univers 00:00:00 00:00:00 Jacquelyn [facility] [id number] it y of [place] [id number] [place] as Professio [phone] [address] One 2020-09-27 2020-09-27 Refmason SuBRADFORD, UTPERRY 1.2.840.114 [id number] Univers 00:00:00 00:00:00 Jacquelyn [facility] 350.1.13.10 it y of [place] [id number] Val[place] as Professio [id number] [address] One 2020-09-10 2020-09-10 [facility] 1.2.840.114 [id number] Univers 00:00:00 00:00:00 Jacquelyn Health 350.1.13.10 it y of [place] [id number] Val[place]iano as Professio [phone] Ak dical nal [address] [place] Office [facility] One 2020-08-09 2020-08-09 Patient Momo VTPERRY 1.2.840.114 [id number] Univers 00:00:00 00:00:00 Outreach Porfirio MONTERO 350.1.13.10 i ty of [facility] [place]7.2.[place] [id number] Ak dical [address] [place] 2020-05-08 2020-05-08 [facility] [id number] Univers 00:00:00 00:00:00 [facility] [id number] it y of [place] [id number] Val[place]iano as Professio [phone] [facility] [place] [facility] One 2020-03-19 2020-03-19 [facility] 1.2.840.114 [id number] Univers 08:40:51 08:55:51 Visit [facility] 350.1.13.10 it y of [place] [id number] [place] as Professio [phone] [facility] [place] [facility] One 2020-03-19 2020-03-19 Outpatient R SHARLENE [facility] [id number] Univers 08:45:00 08:45:00 JACQUELYN itlidia of [facility] 2020-03-19 2020-03-19 Letter Doctor SUMAYA 1.2.840.114 [id number] Univers 00:00:00 00:00:00 (Out) Unassigned, ALF 350.1.13.10 ity of [place] [facility] [id number] Valeriano as [phone] [facility] elías [address] [place] 2020-03-06 2020-03-06 [facility] [id number] Univers 00:00:00 00:00:00 [facility] [id number] it y of [place] [id number] Valeriano as Professio [phone] [facility] [place] [address] Building One 2019-10-18 2019-10-18 Outpatient R SHARLENE [facility] [id number] Univers 09:45:00 09:45:00 JACQUELYN venegas [facility] 2019-10-18 2019-10-18 [facility]ici [facility] 1.2.840.114 [id number] Univers 07:46:02 08:01:02 ne Visit Jacquelyn Goode 350.1.13.10 ity [id number] Profess[place] [phone] [address] 2019-10-05 2019-10-05 [facility]phone [facility] [id number] Univers 00:00:00 00:00:00 [facility] 350.1.13.10 it y of [place] [id number] [place] as Professio [phone] [address] Office [facility] One 2019-09-12 2019-09-12 [facility]n [facility] 1.2.840.114 [id number] Univers 00:00:00 00:00:00 [facility] 350.1.13.10 it y of [place] [id number] [place] as Professio [phone] [address] Office [facility] One 2019-09-05 2019-09-05 [facility] 1.2.840.114 [id number] Univers 00:00:00 00:00:00 [facility] 350.1.13.10 it y of [place] [id number] [place] as Professio [phone] [address] One 2019-08-08 2019-08-08 [facility] 1.2.840.114 [id number] Univers 00:00:00 00:00:00 [facility] 350.1.13.10 it y of [place] [id number] [place]iano as Professio [phone] [address] Office [facility] [facility] 2019-08-01 2019-08-01 Office [facility] [id number] Univers 14:36:32 15:33:12 Visit Magalie Goode [id number] ity [id number] Profess[place] [phone] Ak dical nal 204 [facility] 2019-08-01 2019-08-01 Outpatient R DIDIER [facility] [id number] Univers 15:00:00 15:00:00 MAGALIE venegas [facility] 2019-07-27 2019-07-27 Outpatient R DIDIER [facility] [id number] Univers 15:30:00 15:30:00 MAGALIE venegas [facility] 2019-07-21 2019-07-21 Orders Doctor SUMAYA [id number] Univers 00:00:00 00:00:00 Only Unassigned, ALF [id number] ity of [place] [facility] [id number] [place] as [phone] [address] 2019-07-19 2019-07-19 [facility] [id number] Univers 00:00:00 00:00:00 [facility] [id number] it y of [place] [id number] [place] as Professio [phone] Ak dical nal 0[address] [place] Office [facility] 2019-07-15 2019-07-15 [facility] [id number] Univers 00:00:00 00:00:00 [facility] [id number] it y of [place] [id number] [place] as Professio [phone] Ak dical nal 044 [facility] 2019-07-14 2019-07-14 [facility] [id number] Univers 00:00:00 00:00:00 [facility] [id number] it y of [place] [id number] [place] as Professio [phone] Ak dical nal 044 [facility] 2019-07-13 2019-07-13 [facility]phone [facility] [id number] Univers 00:00:00 00:00:00 [facility] [id number] it y of [place] [id number] [place] as Professio [phone] Ak dical nal 044 [place] [facility] 2019-07-07 2019-07-07 Office BRYANT Su [id number] Univers 13:54:25 14:23:47 Visit Jacquelyn [facility] [id number] it y of [place] [id number] [place] as Professio [phone] Ak dical nal 044 [place] [facility] 2019-06-09 2019-06-09 Refill Sharlene [facility] [id number] Univers 00:00:00 00:00:00 Jacquelyn [place] [id number] it y of [place] [id number] [place] as Professio [phone] Ak dical nal 044 [place] [facility] 2019-06-07 2019-06-07 Telephone Sharlene [facility] [id number] Univers 00:00:00 00:00:00 Jacquelyn [place] [id number] it y of [place] [id number] [place] as Professio [phone] Ak dical nal 044 [place] [facility] One Results Test Description Test Time Test Comments Results Result Comments Source POCT URINALYSIS, INSTRUMENT 2019-08-01 20:34:00 Test Item Value Reference Range Interpretation Comme nts POCT U SP GRAV (test code = 3255) 1.025 mg/dl 1.005-1.025 POCT PH U (test code = 3254) 7.0 mg/dl 5-8 POCT U LEUK EST (test code = 3263) trace Negative - Negative POCT U NIT (test code = 3262) negative Negative - Negative POCT U PROT (test code = 3259) negative Negative - Negative POCT U GLU (test code = 3256) negative Negative - Negative POCT U KETONE (test code = 3258) negative Negative - Negative POCT U UROBILI (test code = 3260) 0.2 mg/dl 0.2-1 POCT U BILI (test code = 3261) negative Negative - Negative POCT U BLD (test code = 3257) negative Negative - Negative POCT U COLOR (test code = 3266) yellow POCT U APPEAR (test code = 3267) clear [facility] [id number] 20:34:00 Test Item Value Reference Range Interpretation Comments POCT U SP GRAV (test code = 1.025 mg/dl 1.005-1.025 3255) POCT PH U (test code = 3254) 7.0 mg/dl 5-8 POCT U LEUK EST (test code = trace Negative - Negative 3263) POCT U NIT (test code = 3262) negative Negative - Negative POCT U PROT (test code = negative Negative - Negative 3259) POCT U GLU (test code = 3256) negative Negative - Negative POCT U KETONE (test code = negative Negative - Negative 3258) POCT U UROBILI (test code = 0.2 mg/dl 0.2-1 3260) POCT U BILI (test code = negative Negative - Negative 3261) POCT U BLD (test code = 3257) negative Negative - Negative POCT U COLOR (test code = yellow 3266) POCT U APPEAR (test code = clear 3267) [facility]
--- NOTE | 2022-09-19 19:57 | RAD REPORT ---
EXAM DESCRIPTION: CT - Head Brain Wo Cont - 09/19/2022 7:43 pm CLINICAL HISTORY: Dizziness COMPARISON: none TECHNIQUE: Computed axial tomography of the head was obtained. IV contrast was not requested. All CT scans are performed using dose optimization technique as appropriate and may include automated exposure control or mA/KV adjustment according to patient size. FINDINGS: An intracranial bleed is not seen The ventricles are normal in caliber No significant hypodense areas within the brain visualized No extra-axial fluid collection is noted. Fluid within the sinuses/ mastoids is not seen IMPRESSION: No acute intracranial abnormality is seen If patient's symptoms persist MRI of the brain would be recommended
[2022-09-19] MEDS ORDERED: ASPIRIN 81 MG CHEWABLE TABLET ONE (20:16)
--- NOTE | 2022-09-19 20:34 | RAD REPORT ---
EXAM DESCRIPTION: Daryn Single View09/19/2022 8:28 pm CLINICAL HISTORY: Chest pain COMPARISON: none FINDINGS: The lungs appear clear of acute infiltrate. The heart is normal size IMPRESSION: No acute abnormalities displayed
[2022-09-19 20:50] LABS: Absolute Lymphocytes (CBC) 2.1 K/uL (0.7-4.9); Hematocrit 32.3 % (36.0-45.0); Lymphocytes % 15.8 % (15.3-44.8); MCV 76.2 fL (80-100); MPV 7.5 fL (7.6-11.3); RBC Red Blood Cell Count 4.24 M/uL (3.86-4.86)
[2022-09-19 20:59] LABS: ALT/SGPT 26 U/L (13-56); Albumin 3.5 g/dL (3.4-5.0); Alkaline Phosphatase 129 U/L (45-117); BUN Blood Urea Nitrogen 12 mg/dL (7-18); Bicarbonate 28 mEq/L (21-32); Bilirubin Total 0.4 mg/dL (0.2-1.0); Glomerular Filtration Rate 93 ml/min (=/>90); Glucose Level 94 mg/dL (74-106); NT PRO-BNP 95 pg/mL (<125); Protein, Total 8.3 g/dL (6.4-8.2); Sodium Level 135 mEq/L (136-145)
[2022-09-19 21:00] LABS: AST/SGOT 19 U/L (15-37); Bilirubin Direct < 0.1 mg/dL (0-0.2); Potassium 3.8 mEq/L (3.5-5.1); Troponin High Sensitivity < 3.0 pg/mL (<58.9)
[2022-09-19 21:24] LABS: Protime INR 1.11
[2022-09-19] MEDS ORDERED: LORAZEPAM 1 MG TABLET ONE (21:39)
--- NOTE | 2022-09-19 22:02 | ER ---
Nurse's Notes [facility] Name: Jacquelin Corea Age: 46 yrs Sex: Female : 1975 Arrival Date: 09/19/2022 Time: 18:30 Bed 18 Private MD: Diagnosis: Angina pectoris, unspecified;acute chest pain Presentation: 09/19 18:45 Chief complaint: Patient states: Left arm numbness and axillary soreness starting at cm9 6:30 PM. Coronavirus screen: Vaccine status: Patient reports receiving the 2nd dose of the covid vaccine. At this time, the client does not indicate any symptoms associated with coronavirus-19. Ebola Screen: No symptoms or risks identified at this time. Initial Sepsis Screen: Does the patient meet any 2 criteria? No. Patient's initial sepsis screen is negative. Does the patient have a suspected source of infection? No. Patient's initial sepsis screen is negative. Risk Assessment: Do you want to hurt yourself or someone else? Patient reports no desire to harm self or others. Onset of symptoms was September 19, 2022. 18:45 Method Of Arrival: Ambulatory 9 18:45 Acuity: VIJAY 2 cm9 Triage Assessment: 18:47 General: Appears uncomfortable, Behavior is cooperative, anxious. Pain: Complains of cm9 pain in left lateral anterior chest Pain radiates to left hand and left arm Pain currently is 5 out of 10 on a pain scale. Quality of pain is described as heavy, Pain began suddenly. Neuro: Level of Consciousness is awake, alert, obeys commands, Oriented to person, place, time, situation. Cardiovascular: Capillary refill < 3 seconds Patient's skin is warm and dry. Respiratory: Airway is patent Respiratory effort is even, unlabored. GI: Reports nausea, vomiting. Historical: - Allergies: 18:47 No Known Allergies; cm9 - PMHx: 18:47 Rheumatoid arthritis; cm9 - PSHx: 18:47 section; cm9 - Immunization history:: Adult Immunizations up to date, Client reports receiving the 2nd dose of the Covid vaccine. - Social history:: Smoking status: Patient denies any tobacco usage or history of. Patient/guardian denies using alcohol. - Family history:: not pertinent. Screenin:50 Abuse screen: Denies threats or abuse. Denies injuries from another. Nutritional ha1 screening: No deficits noted. Tuberculosis screening: No symptoms or risk factors identified. Assessment: 20:54 Reassessment: Patient and/or family updated on plan of care and expected duration. Pain ha1 level reassessed. Patient is alert, oriented x 3, equal unlabored respirations, skin warm/dry/pink. 21:50 Reassessment: Patient and/or family updated on plan of care and expected duration. Pain ha1 level reassessed. Patient is alert, oriented x 3, equal unlabored respirations, skin warm/dry/pink. 22:50 Reassessment: Patient and/or family updated on plan of care and expected duration. Pain ha1 level reassessed. Patient is alert, oriented x 3, equal unlabored respirations, skin warm/dry/pink. 23:50 Reassessment: Patient and/or family updated on plan of care and expected duration. Pain ha1 level reassessed. Patient is alert, oriented x 3, equal unlabored respirations, skin warm/dry/pink. 09/20 14:06 Reassessment: attempted to call report to 4th floor, no answer at this time. kc6 14:21 Reassessment: attempted to call report to 4th floor. stated the nurse is on break right kc6 now and will call me back. Vital Signs: 09/19 18:45 BP 175 / 90; Pulse 85; Resp 20; Pulse Ox 97% on R/A; Weight 148.78 kg; Height 5 ft. 4 cm9 in. ; Pain 5/10; 20:00 BP 154 / 88; Pulse 82; Resp 19; Pulse Ox 97% on R/A; ha1 21:50 BP 135 / 71; Pulse 85; Resp 16 S; Pulse Ox 98% on R/A; ha1 22:50 BP 131 / 85; Pulse 86; Resp 20 S; Pulse Ox 97% on R/A; ha1 23:45 BP 146 / 86; Pulse 87; Resp 19 S; Pulse Ox 96% on R/A; ha1 18:45 Body Mass Index 56.30 (148.78 kg, 162.56 cm) cm9 18:45 Pain Scale: Adult cm9 Fiona Coma Score: 19:46 Eye Response: spontaneous(4). Motor Response: obeys commands(6). Verbal Response: sp4 oriented(5). Total: 15. NIH Stroke Scale Scores: 19:46 NIHSS Score: 0 sp4 ED Course: 18:32 Patient arrived in ED. mr 18:47 Triage completed. cm9 18:47 Arm band placed on right wrist. cm9 19:22 Nicolas Farias MD is Attending Physician. sp4 19:45 CT Head Brain wo Cont In Process Unspecified. EDMS 19:46 Josee George, ZACHARY is Primary Nurse. ha1 20:00 Patient has correct armband on for positive identification. Placed in gown. Bed in low ha1 position. Call light in reach. Side rails up X 1. 20:30 XRAY Chest (1 view) In Process Unspecified. EDMS 20:30 Missed attempt(s): 20 gauge Bleeding controlled, band aid applied, catheter tip intact. eh3 21:16 Inserted saline lock: 20 gauge in right antecubital area, using aseptic technique. eh3 22:00 Kalin Phillips MD is Hospitalizing Provider. sp4 09/20 15:41 No provider procedures requiring assistance completed. IV discontinued, intact, kc6 bleeding controlled, No redness/swelling at site. Pressure dressing applied. Administered Medications: 09/19 20:00 Drug: Aspirin PO Chewable Tablet 324 mg Route: PO; ha1 21:37 Drug: LORazepam PO 2 mg Route: PO; ha1 22:15 Follow up: Response: No adverse reaction ha1 Medication: 09/20 15:42 VIS not applicable for this client. kc6 Outcome: 09/19 22:01 Decision to Hospitalize by Provider. sp4 09/20 15:42 Discharged to home ambulatory, with family. kc6 Condition: stable Discharge instructions given to patient, Instructed on discharge instructions, follow up and referral plans. Demonstrated understanding of instructions, follow-up care. 15:42 Patient left the ED. kc6 NIH Stroke Scale - NIH Stroke Score Date: 09/19/2022 Time: 19:46 Total Score = 0 10. Dysarthria (speech clarity - read or repeat words) - 0(Normal) 11. Extinction and Inattention (visual/tactile/auditory/spatial/personal) - 0(No abnormality) 1a. Level of Consciousness (LOC) - 0(Alert) 1b. Level of Consciousness (LOC) (Month \T\ Age) - 0(Both) 1c. LOC Commands (Open \T\ Closes Eyes/Glass Cleaning Machine Tender) - 0(Both) 2. Best Gaze (Lateral Gaze Paresis) - 0(Normal) 3. Visual Field Loss - 0(No visual loss) 4. Facial Palsy - 0(Normal) 5a. Left Arm: Motor (10-second hold) - 0(No drift) 5b. Right Arm: Motor (10-second hold) - 0(No drift) 6a. Left Leg: Motor (5-second hold - always test supine) - 0(No drift) 6b. Right Leg: Motor (5-second hold - always test supine) - 0(No drift) 7. Limb Ataxia (finger/nose \T\ heel/santos - test with eyes open) - 0(Absent) 8. Sensory Loss (pinprick arms/legs/face) - 0(Normal) 9. Best Language: Aphasia (description/naming/reading) - 0(No aphasia) Initials: sp4 Signatures: Dispatcher [employer] MADHAVIIA Monique Marilin odom Bess Izquierdo, RN RN eh3 Josee George, ZACHARY RN ha1 Anne Mijraes, RN RN kc6 Nicolas Farias MD MD sp4 Marlen Todd, ZACHARY RN cm9
--- NOTE | 2022-09-19 22:02 | EDPHYS ---
Physician Documentation [facility] Name: Jacquelin Corea Age: 46 yrs Sex: Female : 1975 Arrival Date: 09/19/2022 Time: 18:30 Bed 18 Private MD: ED Physician Nicolas Farias HPI: 09/19 19:22 This 46 yrs old Female presents to ER via Ambulatory with complaints of sp4 Numbness Of Arm. 19:32 46-year-old white female presents with acute onset of chest pain and left arm numbness sp4 and tingling extending down to the left hand.. Patient states she developed her symptoms approximately 10 minutes prior to arrival while she was sitting down to eat. Patient denied any similar symptoms in the past.. Patient reported left-sided chest pain and discomfort associated with his symptoms but denied shortness of breath, denied diaphoresis. Patient has history of morbid obesity, rheumatoid arthritis, insomnia, depression.. At home patient takes citalopram, Ambien, Wellbutrin, hydroxychloroquine, and she is on long-term prednisone 5 mg daily for rheumatoid arthritis. Patient denied any prior history of diabetes, or hypertension. [facility]. . Historical: - Allergies: 18:47 No Known Allergies; cm9 - PMHx: 18:47 Rheumatoid arthritis; cm9 - PSHx: 18:47 section; cm9 - Immunization history:: Adult Immunizations up to date, Client reports receiving the 2nd dose of the Covid vaccine. - Social history:: Smoking status: Patient denies any tobacco usage or history of. Patient/guardian denies using alcohol. - Family history:: not pertinent. ROS: 19:32 Constitutional: Negative for fever, chills, and weight loss, Eyes: Negative for injury, sp4 pain, redness, and discharge, ENT: Negative for injury, pain, and discharge, Neck: Negative for injury, pain, and swelling, Cardiovascular: Negative for palpitations, and edema. 19:46 Respiratory: Negative for shortness of breath, cough, wheezing, and pleuritic chest sp4 pain, Abdomen/GI: Negative for abdominal pain, nausea, vomiting, diarrhea, and constipation, Back: Negative for injury and pain, : Negative for injury, bleeding, discharge, and swelling, MS/Extremity: Negative for injury and deformity, positive for left arm numbness Skin: Negative for injury, rash, and discoloration, Neuro: Negative for headache, weakness, tingling, and seizure, positive left arm numbness Psych: Negative for depression, anxiety, Allergy/Immunology: Negative for hives, rash, and allergies Endocrine: Negative for neck swelling, polydipsia, polyuria, polyphagia, and weight changes Hematologic/Lymphatic: Negative for swollen nodes, abnormal bleeding, and unusual bruising Exam: 19:46 Constitutional: This is a well developed, well nourished patient who is awake, alert, sp4 and in no acute distress. Head/Face: Normocephalic, atraumatic. Eyes: Pupils equal round and reactive to light, extra-ocular motions intact. Lids and lashes normal. Conjunctiva and sclera are not injected. Cornea within normal limits. Periorbital areas with no swelling, redness, or edema. ENT: Nares patent. No nasal discharge, no septal abnormalities noted. Tympanic membranes are normal and external auditory canals are clear. Oropharynx with no redness, swelling, or masses, exudates, or evidence of obstruction, uvula midline. Mucous membranes moist. Neck: Trachea midline, no thyromegaly or masses palpated, and no cervical lymphadenopathy. Supple, full range of motion without nuchal rigidity, or vertebral point tenderness. No Meningismus. Chest/axilla: Normal chest wall appearance and motion. Nontender with no deformity. No lesions are appreciated. Cardiovascular: Regular rate and rhythm with a normal S1 and S2. No gallops, murmurs, or rubs. Normal PMI, no JVD. No pulse deficits. Respiratory: Lungs have equal breath sounds bilaterally, clear to auscultation and percussion. No rales, rhonchi or wheezes noted. No increased work of breathing, no retractions or nasal flaring. Abdomen/GI: Soft, non-tender, with normal bowel sounds. No distension or tympany. No guarding or rebound. No evidence of tenderness throughout. Back: No spinal tenderness. No costovertebral tenderness. Skin: Warm, dry with normal turgor. Normal color with no rashes, no lesions, and no evidence of cellulitis. MS/ Extremity: Pulses equal, no cyanosis. Neurovascular intact. Full, normal range of motion. Neuro: Awake and alert, GCS 15, oriented to person, place, time, and situation. Cranial nerves II-XII grossly intact. Motor strength 5/5 in all extremities. Sensory grossly intact. Psych: Awake, alert, with orientation to person, place and time. Behavior, mood, and affect are within normal limits 19:46 ECG was reviewed by the Attending Physician. EKG time 1847 there is normal sinus sp4 rhythm at rate of 82, no ectopy, no ST elevation or depression, overall normal EKG Vital Signs: 18:45 BP 175 / 90; Pulse 85; Resp 20; Pulse Ox 97% on R/A; Weight 148.78 kg; Height 5 ft. 4 cm9 in. ; Pain 5/10; 20:00 BP 154 / 88; Pulse 82; Resp 19; Pulse Ox 97% on R/A; ha1 21:50 BP 135 / 71; Pulse 85; Resp 16 S; Pulse Ox 98% on R/A; ha1 22:50 BP 131 / 85; Pulse 86; Resp 20 S; Pulse Ox 97% on R/A; ha1 23:45 BP 146 / 86; Pulse 87; Resp 19 S; Pulse Ox 96% on R/A; ha1 18:45 Body Mass Index 56.30 (148.78 kg, 162.56 cm) cm9 18:45 Pain Scale: Adult cm9 NIH Stroke Scale Scores: 19:46 NIHSS Score: 0 sp4 Fiona Coma Score: 19:46 Eye Response: spontaneous(4). Motor Response: obeys commands(6). Verbal Response: sp4 oriented(5). Total: 15. MDM: 21:10 Patient medically screened. sp4 22:02 Differential diagnosis: contusion, tendonitis, Coronary artery disease, acute angina, sp4 acute CVA. Data reviewed: vital signs, nurses notes, lab test result(s), cardiac enzymes, CBC, electrolytes, EKG, radiologic studies, CT scan, plain films. ED course: Patient is a very pleasant 46-year-old female with history of morbid obesity, rheumatoid arthritis, obstructive sleep. Patient presents with chest discomfort acute onset while eating associated with left arm numbness and tingling. Patient is on a high risk with respect to coronary artery disease probability's thus admitting hospitalist was asked to rule out ACS and the patient. 09/19 19:32 Order name: Basic Metabolic Panel; Complete Time: 21:30 sp4 09/19 19:32 Order name: CBC with Diff; Complete Time: 22:51 sp4 09/19 19:32 Order name: LFT's; Complete Time: 21:30 sp4 09/19 19:32 Order name: Magnesium; Complete Time: 21:30 sp4 09/19 19:32 Order name: NT PRO-BNP; Complete Time: 21:30 sp4 09/19 19:32 Order name: PT-INR; Complete Time: 21:30 sp4 09/19 19:32 Order name: Troponin HS; Complete Time: 21:30 sp4 09/19 22:10 Order name: CBC Smear Scan; Complete Time: 22:51 EDMS 09/20 02:55 Order name: CBC with Automated Diff; Complete Time: 05:17 EDMS 09/20 03:12 Order name: Troponin High Sensitivity; Complete Time: 05:17 EDMS 09/20 03:33 Order name: Basic Metabolic Panel; Complete Time: 05:17 EDMS 09/20 03:33 Order name: T4 Free; Complete Time: 05:17 EDMS 09/20 03:33 Order name: Thyroid Stimulating Hormone; Complete Time: 05:17 EDMS 09/20 08:31 Order name: Potassium EDMS 09/20 08:38 Order name: Troponin High Sensitivity EDMS 09/20 10:58 Order name: D-Dimer EDMS 09/19 19:32 Order name: XRAY Chest (1 view); Complete Time: 21:30 sp4 09/19 19:32 Order name: CT Head Brain wo Cont; Complete Time: 21:30 sp4 09/19 19:32 Order name: EKG; Complete Time: 19:34 sp4 09/19 18:50 Order name: EKG - Nurse/Tech; Complete Time: 18:50 cm9 09/19 19:32 Order name: Cardiac monitoring; Complete Time: 20:53 sp4 09/19 19:32 Order name: IV Saline Lock; Complete Time: 21:41 sp4 09/19 19:32 Order name: Labs collected and sent; Complete Time: 21:41 sp4 09/19 19:32 Order name: O2 Per Protocol; Complete Time: 20:53 sp4 09/19 19:32 Order name: O2 Sat Monitoring; Complete Time: 20:53 sp4 EC:46 Rate is 82 beats/min. Rhythm is regular, Normal Sinus Rhythm. QRS Bradshaw is Normal. WA sp4 interval is normal. QRS interval is normal. QT interval is normal. T waves are Normal. No ST changes noted. Clinical impression: Normal ECG. Interpreted by me. Administered Medications: 20:00 Drug: Aspirin PO Chewable Tablet 324 mg Route: PO; ha1 21:37 Drug: LORazepam PO 2 mg Route: PO; ha1 22:15 Follow up: Response: No adverse reaction ha1 Disposition Summary: 09/19/22 22:01 Hospitalization Ordered Hospitalization Status: Observation sp4 Provider: Kalin Phillips sp4 Condition: Stable sp4 Problem: new sp4 Symptoms: have improved sp4 Bed/Room Type: Standard sp4 Location: [facility] ER HOLD(09/20/22 14:48) iw Room Assignment: (09/20/22 14:48) iw Diagnosis - Angina pectoris, unspecified sp4 - acute chest pain sp4 Forms: - Medication Reconciliation Form sp4 - SBAR form sp4 NIH Stroke Scale - NIH Stroke Score Date: 09/19/2022 Time: 19:46 Total Score = 0 10. Dysarthria (speech clarity - read or repeat words) - 0(Normal) 11. Extinction and Inattention (visual/tactile/auditory/spatial/personal) - 0(No abnormality) 1a. Level of Consciousness (LOC) - 0(Alert) 1b. Level of Consciousness (LOC) (Month \T\ Age) - 0(Both) 1c. LOC Commands (Open \T\ Closes Eyes/Commanding Officer Garage) - 0(Both) 2. Best Gaze (Lateral Gaze Paresis) - 0(Normal) 3. Visual Field Loss - 0(No visual loss) 4. Facial Palsy - 0(Normal) 5a. Left Arm: Motor (10-second hold) - 0(No drift) 5b. Right Arm: Motor (10-second hold) - 0(No drift) 6a. Left Leg: Motor (5-second hold - always test supine) - 0(No drift) 6b. Right Leg: Motor (5-second hold - always test supine) - 0(No drift) 7. Limb Ataxia (finger/nose \T\ heel/santos - test with eyes open) - 0(Absent) 8. Sensory Loss (pinprick arms/legs/face) - 0(Normal) 9. Best Language: Aphasia (description/naming/reading) - 0(No aphasia) Initials: sp4 Signatures: Dispatcher [employer] Kenisha Correa, ZACHARY RN iw Martin Nelson, REPAIRER HAIRSPRING-C REPAIRER HAIRSPRING-Cla1 Albina Petty, RN RN cg Josee George RN RN ha1 Anne Mijares RN RN kc6 Nicolas Farias MD MD sp4 Marlen Todd RN RN cm9 Corrections: (The following items were deleted from the chart) 22:59 22:01 Telemetry/MedSurg (observation) sp4 22:59 22:01 sp4 09/20 13:50 09/19 22:59 [facility] ER HOLD cg [facility] 09/20 13:50 09/19 22:59 ERHOLD- cg 6 09/20 14:48 13:50 Telemetry/MedSurg (observation) [facility] 14:48 13:50 409 [facility]
[2022-09-19 22:10] LABS: Blood Morphology Comment NOT SEEN (NOT SEEN); Platelet Estimate ADEQ; White Blood Cell Scan OK (OK)
--- NOTE | 2022-09-19 23:33 | P.HP ---
Certification for Inpatient Patient admitted to: Observation With expected LOS: <2 Midnights Patient will require the following post-hospital care: None Practitioner: I am a practitioner with admitting privileges, knowledge of patient current condition, hospital course, and medical plan of care. Services: Services provided to patient in accordance with Admission requirements found in Title 42 Section 412.3 of the Code of Federal Regulations Patient History Date of Service: 09/19/22 Reason for admission: ACS rule out History of Present Illness: 46-year-old female with history of rheumatoid arthritis on chronic steroids, JANE, morbid obesity presents to the emergency department with chief complaint of left arm pain, chest pain. She reports she had just sat down to eat dinner at [employer] when she got a onset of tingling and pain in her left arm which radiated to her left chest wall described as tightness. She then presented to the emergency department for evaluation her EKG was without STEMI criteria initial high- sensitivity troponin less than 3, she does have mild leukocytosis which is likely related to her chronic steroid use. We will admit under observation for ACS rule out. Allergies No Known Allergies Allergy (Verified 11/18/18 16:16) Home Medications: Varenicline Tartrate [Chantix] 1 mg PO DAILY 12/10/15 Zolpidem Tartrate [Ambien] 10 mg PO BEDTIME PRN PRN 12/10/15 - Past Medical/Surgical History -: RA on chronic steroids -: JANE -: Foot surgery Psychosocial/ Personal History: Patient works in [employer], lives at home with her children. - Family History Family History: Reviewed- Non-Contributory - Social History Smoking Status: Former smoker Alcohol use: No CD- Drugs: No Caffeine use: Yes Place of Residence: Home Review of Systems 10-point ROS is otherwise unremarkable Cardiovascular: Chest Pain Physical Examination - Physical Exam General: Alert, In no apparent distress, Oriented x3, Obese HEENT: Atraumatic, PERRLA, Mucous membr. moist/pink, EOMI, Sclerae nonicteric Neck: Supple, 2+ carotid pulse no bruit, No LAD, Without JVD or thyroid abnormality Respiratory: Clear to auscultation bilaterally, Normal air movement Cardiovascular: Regular rate/rhythm, Normal S1 S2 Gastrointestinal: Normal bowel sounds, No tenderness Musculoskeletal: No tenderness Integumentary: No rashes Neurological: Normal gait, Normal speech, Normal strength at 5/5 x4 extr, Normal tone, Normal affect Lymphatics: No axilla or inguinal lymphadenopathy - Studies Laboratory Data (last 24 hrs) 09/19/22 20:16: PT 12.2, INR 1.11 09/19/22 20:16: WBC 13.10 H, Hgb 10.1 L, Hct 32.3 L, Plt Count 257 09/19/22 20:16: Sodium 135 L, Potassium 3.8, BUN 12, Creatinine 0.80, Glucose 94, Magnesium 2.0, Total Bilirubin 0.4, AST 19, ALT 26, Alkaline Phosphatase 129 H Assessment and Plan - Plan Assessment: Chest pain rule out ACS Rheumatoid arthritis on chronic steroids JANE Morbid obesity Plan: Chest pain rule out ACS Trend troponins, monitor on telemetry, cardiology consult in place. Patient without any previous stress test or heart catheterization. Continue aspirin, statin. Lipid panel in the morning. Appreciate further input from cardiology. Rheumatoid arthritis on chronic steroids Continue home medications, likely contributing to mild leukocytosis. JANE CPAP ordered for nighttime Morbid obesity Counseled on need for lifestyle changes. DVT PPX: Lovenox Code status: Full Discharge Plan: Home Plan to discharge in: 24 Hours - Advance Directives Does patient have a Living Will: No Does patient have a Durable POA for Healthcare: No - Code Status/Comfort Care Code Status Assessed: Yes (Full code) Critical Care: No Time Spent Managing Pts Care (In Minutes): 55
[2022-09-20] MEDS ORDERED: MORPHINE 2 MG/ML SYR IV PRN (02:00)
[2022-09-20] MEDS ORDERED: ONDANSETRON 4 MG/2 ML VIAL IV PRN (02:00)
[2022-09-20] MEDS ORDERED: ZOLPIDEM TARTRATE 10 MG TABLET PO PRN (02:00)
[2022-09-20 02:49] LABS: Absolute Lymphocytes (CBC) 1.8 K/uL (0.7-4.9); Hematocrit 31.9 % (36.0-45.0); Lymphocytes % 17.6 % (15.3-44.8); MCV 75.4 fL (80-100); MPV 7.2 fL (7.6-11.3); RBC Red Blood Cell Count 4.23 M/uL (3.86-4.86)
[2022-09-20 03:21] LABS: Potassium 3.2 mEq/L (3.5-5.1)
[2022-09-20 03:32] LABS: Thyroid Stimulating Hormone 5.34 uIU/mL (0.358-3.740)
[2022-09-20 06:50] VITALS: TEMP 98.2
[2022-09-20 07:23] VITALS: BMI 51.2
[2022-09-20] MEDS ORDERED: POTASSIUM CL SA 10 MEQ TAB PO ONE ×2 (07:25→07:43)
[2022-09-20] MEDS ORDERED: ASPIRIN EC 81 MG TAB PO ONE (07:43)
[2022-09-20] MEDS ORDERED: ENOXAPARIN 40 MG/0.4 ML SQ ONE (07:43)
[2022-09-20] MEDS ORDERED: ASPIRIN EC 81 MG TAB PO SCH (09:00)
[2022-09-20] MEDS ORDERED: ENOXAPARIN 40 MG/0.4 ML SQ SCH (09:00)
[2022-09-20 09:56] VITALS: O2SAT 95
[2022-09-20 15:17] VITALS: BP 133/84
--- NOTE | 2022-09-20 15:19 | EKG ---
Test Date: 2022-09-19 Test Time: 18:47:35 Beck Operator: Kemar VALDERRAMA MEASUREMENT RESULTS: Intervals: Rate: 82 NE: 164 QRSD: 84 QT: 386 QTc: 450 [place]one: P: 27 NE: 164 QRS: 45 T: 2 INTERPRETIVE STATEMENTS: Normal sinus rhythm Normal ECG No previous ECG available for comparison Electronically Signed On 09-20-22 15:18:07 CDT by Ian Vogel
--- NOTE | 2022-09-20 15:25 | P.DS ---
Admission Date: 09/19/22 Discharge Date: 09/20/22 Primary Care Provider: Bess Cortes NP Disposition: ROUTINE DISCHARGE Discharge Condition: GOOD Reason for Admission: ACS rule out Consultations: 1. Cardiology Hospital Course: DIAGNOSES: # Chest Pain, suspect non-cardiac # Rheumatoid Arthritis on Chronic Prednisone # Likely Steroid-Induced Leukocytosis - improved # Obstructive Sleep Apnea # Morbid Obesity - BMI 51.2 kg/m2 HOSPITAL COURSE: Ms. Jacquelin Corea is a 46-year-old female with a past medical history significant for rheumatoid arthritis on chronic prednisone and morbid obesity who was admitted to the [facility] on 09/19/2022 for chest pain. She was admitted to the Medicine service. Her EKG was without STEMI criteria. Her troponin trend was <3.0 -> 3.4 -> 3.6. Her d-dimer was 310. Her chest x-ray revealed, "no acute abnormalities displayed." Over the course of her hospitalization, her symptoms completely resolved. Cardiology was consulted and she was evaluated by Dr. Vogel. He has cleared her for discharge home with an outpatient transthoracic echocardiogram and outpatient cardiac stress test. On 09/20/2022, she was seen on rounds and deemed medically stable for discharge. She was discharged with instructions to schedule follow-up appointments with her PCP (VICENTE Cortes) and with Cardiology (Dr. Vogel). She was given the opportunity to ask questions and reported no further questions. Furthermore, all questions were answered to the best of my ability. A copy of this discharge summary will be sent to the above providers to facilitate continuity of care. Today, I personally spent 25 minutes on her case, of which greater than 50% of the time was spent in patient education, counseling, and coordination of care as described above. Vital Signs/Physical Exam: Temp Pulse Resp BP Pulse Ox 98.2 F 87 21 H 133/84 97 09/20/22 04:00 09/20/22 15:18 09/20/22 15:18 09/20/22 15:18 09/20/22 15:18 General: Alert, In no apparent distress, Oriented x3 HEENT: Atraumatic, Mucous membr. moist/pink, Sclerae nonicteric Neck: JVD not distended Respiratory: Clear to auscultation bilaterally, Normal air movement Cardiovascular: No edema, Regular rate/rhythm, Normal S1 S2, No gallops, No rubs, No murmurs Gastrointestinal: Normal bowel sounds, Soft and benign, Non-distended, No tenderness, No rebound, No guarding Musculoskeletal: No clubbing Integumentary: No rashes Neurological: Normal speech, Normal affect Laboratory Data at Discharge: WBC 10.00 thou/uL (4.3-10.9) 09/20/22 02:21 Hgb 10.1 g/dL (12.0-15.0) L 09/20/22 02:21 Hct 31.9 % (36.0-45.0) L 09/20/22 02:21 Plt Count 274 thou/uL (152-406) 09/20/22 02:21 PT 12.2 SECONDS (9.5-12.5) 09/19/22 20:16 INR 1.11 09/19/22 20:16 Sodium 139 mEq/L (136-145) 09/20/22 02:21 Potassium 3.7 mEq/L (3.5-5.1) D 09/20/22 07:56 BUN 14 mg/dL (7-18) 09/20/22 02:21 Creatinine 0.81 mg/dL (0.55-1.02) 09/20/22 02:21 Glucose 117 mg/dL (74-106) H 09/20/22 02:21 Magnesium 2.0 mg/dL (1.6-2.4) 09/19/22 20:16 Total Bilirubin 0.4 mg/dL (0.2-1.0) 09/19/22 20:16 AST 19 U/L (15-37) 09/19/22 20:16 ALT 26 U/L (13-56) 09/19/22 20:16 Alkaline Phosphatase 129 U/L (45-117) H 09/19/22 20:16 Home Medications: Varenicline Tartrate [Chantix] 1 mg PO DAILY 12/10/15 Zolpidem Tartrate [Ambien*] 10 mg PO BEDTIME PRN PRN 12/10/15 Bupropion HCl [Wellbutrin] 150 mg PO 1X 09/20/22 Hydroxychloroquine [Plaquenil*] 200 mg PO DAILY 09/20/22 Prednisone [Kwame] 5 mg PO 1X 09/20/22 Physician Discharge Instructions: 1. Please call and schedule a follow-up appointment with your PCP (Bess Cortes NP) in 3-5 days - Your thyroid function tests were slightly abnormal, please follow this up with your PCP 2. Please call and schedule a follow-up appointment with Cardiology (Dr. Vogel) in 5-7 days - He will schedule you for an echocardiogram (heart ultrasound) and a cardiac stress test in his clinic Diet: AHA Activity: Ad jnog Followup: Ian Vogel MD [ACTIVE - CAN ADMIT] - Bess Cortes FNPC [OUTSIDE PHYSICIAN] - Time spent managing pt's care (in minutes): 25
--- NOTE | 2022-09-20 18:22 | CON ---
Date of Consultation: 09/20/2022 Reason For Consultation: Chest pain. History Of Present Illness: 46-year-old female, history of rheumatoid arthritis and obstructive slee p apnea, presented with pain to the left arm, radiates to the chest, not related to exertion. EKG di d not show any acute abnormalities. She was observed overnight, had cardiac enzymes, 3 of them were negative and she has no chest pain now. Past Medical History: As outlined above in the HPI. Medications: Refer to reconciliation sheet for detailed list. Allergies: NO KNOWN DRUG ALLERGIES. Family History: No premature coronary artery disease or cancer. Social History: She does not smoke. Does not drink. Does not use any drugs. Review of Systems: All systems reviewed and they were negative except as mentioned in the HPI. Physical Examination: Vital Signs: Reviewed. Head and Neck: Pupils are equal, reactive to light. Intact eye movements. No JVD. No cervical lym phadenopathy. Neck: Supple. Thyroid is not enlarged. Lungs: Clear to auscultation bilaterally. No rhonchi, wheezing, or crackles. No accessory muscle u se. Heart: Regular rate and rhythm. No extra sounds. Abdomen: Soft, nontender. Bowel sounds positive. No organomegaly. No masses or hernia. No rigidit y or rebound. Extremities: No edema, clubbing, or cyanosis. Intact pulses. Skin: No rash. Neurologic: Alert, awake, oriented x3. No acute focal deficits appreciated. Investigations: Cardiac enzymes x3 are negative. BUN 14, creatinine 0.81. EKG without acute specif ic abnormalities. Assessment And Plan: 1.Chest pain. It is atypical and cardiac enzymes are negative, and she is chest-pain free. From Ca rdiology standpoint, patient can be released and asked her to come and see me in the office next week and we will obtain a stress test and an echo as an outpatient. 2.Hypertension. Her blood pressure is elevated. No known history of hypertension. Recommended to start her on a low-dose lisinopril 10 mg daily. 3.Dyslipidemia. Continue statin. SR/MODL Voice ID: [id number] Report ID: [id number]
[2022-09-20] MEDS ORDERED: ATORVASTATIN 40 MG TAB PO SCH (21:00)
== END 2022-09-20 15:39 | disposition home or self-care (01) ==
LOC: ER 18:30 → ERHOLD 22:50 → 4TH 09-20 14:09
PROVIDERS: ADMIT Internal Medicine; ATTEND Internal Medicine
DX: R07.9 Chest pain, unspecified (principal); M79.602 Pain in left arm; D72.829 Elevated white blood cell count, unspecified; E66.01 Morbid (severe) obesity due to excess calories; Z68.43 Body mass index [BMI] 50.0-59.9, adult; G47.33 Obstructive sleep apnea (adult) (pediatric); M06.9 Rheumatoid arthritis, unspecified; E78.5 Hyperlipidemia, unspecified; Z79.52 Long term (current) use of systemic steroids; Z71.3 Dietary counseling and surveillance
CPT/HCPCS: 93005; 85025 ×2; 80048 ×2; 36415; 83735; 84132; 85610; 85379; 80076; 84443; 84484 ×3; 84439; 83880; 70450; 71045; 99284; 94660 ×2; J1650; G0378 ×2

== ENCOUNTER 2023-09-09 07:19 | Day surgery (SDC) | payer OTHER ==
[2023-09-09] MEDS: Ringers Lactate 1,000 ML IV ONE (08:00)
[2023-09-09] MEDS ORDERED: propofoL 200 MG/20 ML VIAL IV ONE ×3 (08:43→09:28)
[2023-09-09] MEDS ORDERED: LIDOCAINE 1% MPF 5 ML VIAL ONE (08:43)
[2023-09-09] MEDS ORDERED: SIMETHICONE 40 MG/ 0.6 ML ONE (08:48)
[2023-09-09 11:40] VITALS: BP 113/66; TEMP 97.3; O2SAT 99
--- NOTE | 2023-09-09 13:30 | RAD REPORT ---
EXAM DESCRIPTION: RAD - Small Bowel Series - 09/09/2023 1:17 pm CLINICAL HISTORY: ANEMIA Abdominal pain COMPARISON: No comparisons FINDINGS: Technical Operations Vice President film shows a nonspecific bowel gas pattern. No obstruction or free air. No suspiciou s calcifications. Gastric size and mucosal fold pattern are normal. No delay in transit of contrast into the small joseph l. Small bowel is normal in diameter with no mucosal fold thickening. No intrinsic or extrinsic mass identifiable. Terminal ileum has normal appearance. Transit time to the colon is normal. No fluoroscopy was performed. Total images acquired: 13 IMPRESSION: Normal small bowel series.
== END 2023-09-09 10:05 | disposition home or self-care (01) ==
LOC: OR 07:19
PROVIDERS: ATTEND Internal Medicine Gastroenterology
PROC: 0DB88ZX Excision of Small Intestine, Via Natural or Artificial Opening Endoscopic, Diagnostic (ICD-10-PCS; 2023-09-09)
PROC: 0DJD8ZZ Inspection of Lower Intestinal Tract, Via Natural or Artificial Opening Endoscopic (ICD-10-PCS; principal; 2023-09-09 08:45)
PROC: 0DB68ZX Excision of Stomach, Via Natural or Artificial Opening Endoscopic, Diagnostic (ICD-10-PCS; 2023-09-09 08:45)
DX: K92.1 Melena (principal); D64.9 Anemia, unspecified; R14.0 Abdominal distension (gaseous); D60.9 Acquired pure red cell aplasia, unspecified; R63.4 Abnormal weight loss; K64.8 Other hemorrhoids; K64.4 Residual hemorrhoidal skin tags; K30 Functional dyspepsia; R14.2 Eructation; K44.9 Diaphragmatic hernia without obstruction or gangrene; K22.2 Esophageal obstruction; K29.50 Unspecified chronic gastritis without bleeding
CPT/HCPCS: 88312; 81025; 88304; 74250; 45378; 43239; J2704 ×2; J2001; J7120; 88305